=== PATIENT | male | born 1980 | race Caucasian/White ===

== ENCOUNTER 2019-08-25 18:28 | Inpatient (IN) | payer BC ==
[~2019-08-25] VITALS: Ht 180.3 cm; Wt 49.1 kg
--- NOTE | ~2019-08-25 | OP ---
PATIENT NAME: RONNIE LEMOS MEDICAL RECORD: [id number] :84 LOCATION:.[facility] D.2304 ADMISSION DATE:08/25/19 SURGEON: RAYMOND DU MD DATE OF OPERATION: 09/08/2019 PREOPERATIVE DIAGNOSES: 1. Need for IV access. 2. Hypercalcemia. 3. Bacteremia. 4. Anemia. 5. Hypotension. POSTOPERATIVE DIAGNOSES: 1. Need for IV access. 2. Hypercalcemia. 3. Bacteremia. 4. Anemia. 5. Hypotension. PROCEDURE: Right subclavian vein triple-lumen central venous line placement. SURGEON: Raymond Du MD REPORT OF PROCEDURE: The patient's right chest was prepped and draped in sterile fashion. A 5 cc of 1% lidocaine was infused into the subcutaneous tissues and a needle was used to cannulate the right internal jugular vein. Over this wire, a dilator was placed followed by the triple lumen catheter. The catheter aspirated nonpulsatile dark blood and flushed easily in all 3 ports. This was sutured into place with 3-0 silk ties and dressed appropriately. COMPLICATIONS: None. CONDITION: Stable. ANESTHESIA: Local. BLOOD LOSS: Minimal. Procedure done in the ICU at the bedside. TRANSINT:[id number] Voice Confirmation ID: [id number] DOCUMENT ID: [id number] RAYMOND DU MD CC: [id number] DICTATION DATE: 09/08/19 1542 SECTION LEADER SCREEN PRINTING: 09/08/19 1720 ADM IN [facility] [address] [place] [address]
[2019-08-25] MEDS ORDERED: MAG-OXIDE400 MG PO (18:34)
[2019-08-25] MEDS ORDERED: CARAFATE1 G PO (18:34)
[2019-08-25] MEDS ORDERED: MITIGARE PO (18:35)
[2019-08-25] MEDS ORDERED: PROTONIX40 MG PO (18:36)
[2019-08-25 19:03] LABS: HEMATOCRIT 40.2 % (42.0-54.0); HEMOGLOBIN 12.9 g/dL (13.5-17.5); LYMPHOCYTES 33.6 % (15-50); MCH 27.7 pg (26.0-34.0); MCHC 32.1 g/dL (31.0-37.0); MCV 86.3 fL (80.0-100.0); MEAN PLATELET VOLUME 8.4 fL (7.4-10.4); NEUTROPHILS 54.4 % (40-80); PLATELET COUNT 507 10x3/uL (130-400); RBC 4.66 10x6/uL (4.20-6.10); WBC 9.3 10x3/uL (4.8-10.8)
[2019-08-25 19:24] LABS: ALKALINE PHOSPHATASE 234 U/L (30-120); ALT (SGPT) 15 U/L (10-68); AMYLASE - SERUM 54 U/L (25-115); BILIRUBIN - TOTAL 0.61 mg/dL (0.2-1.3); CALC OSMOLALITY 259 mosm/kg (275-300); CARBON DIOXIDE 29.7 mmol/L (21.0-32.0); CHLORIDE - SERUM 91 mmol/L (98-107); GLUCOSE 118 mg/dL (74-106); LIPASE 62 U/L (73-393); PROTEIN - SERUM 8.9 g/dL (6.4-8.2); SODIUM 127 mmol/L (136-145); UREA NITROGEN 23 mg/dL (7-18); eGFR NON AFRICAN AMERICAN 40 mL/min (90-120)
[2019-08-25 19:26] LABS: TROPONIN-I < 0.017 ng/mL (0.000-0.060)
[2019-08-25 19:27] LABS: CALCIUM 14.7 mg/dL (8.5-10.1)
[2019-08-25 19:58] VITALS: BP 96/69
[2019-08-25 20:47] VITALS: BP 109/81
[2019-08-25 22:00] VITALS: BP 110/68
[2019-08-25 23:14] VITALS: BP 110/74
--- NOTE | 2019-08-26 00:29 | NUR ---
PT ARRIVED ON UNIT VIA STRETCHER ESCORTED BY ER NURSE AND FRIEND. POSITIONED IN BED FOR COMFORT. ORIENTED TO ROOM AND CALL LIGHT. CONTINUED IV FLUIDS AT 200 PER ORDER.
--- NOTE | 2019-08-26 00:46 | NUR ---
GAVE SCHEDULED PROTONIX IVP....ALSO GAVE MORPHINE 4 MG IVP AND ZOFRAN 4 MG IVP PER REQUEST FOR PAIN AND NAUSEA, PER PRN ORDER. WILL MONITOR FOR EFFECTIVENESS.
[2019-08-26 00:54] VITALS: BP 117/85; BMI 15.1
--- NOTE | 2019-08-26 01:03 | NUR ---
ADMISSION ASSESSMENT AND HISTORY COMPLETE.
[2019-08-26 01:48] LABS: BILIRUBIN NEGATIVE (NEGATIVE); GLUCOSE NEGATIVE (NEGATIVE); KETONE NEGATIVE (NEGATIVE); NITRITE NEGATIVE (NEGATIVE); UROBILINOGEN NORMAL (NORMAL)
[2019-08-26 04:00] VITALS: BP 103/63
[2019-08-26 05:41] LABS: LYMPHOCYTES 36.9 % (15-50); MCV 87.3 fL (80.0-100.0); MEAN PLATELET VOLUME 8.5 fL (7.4-10.4); NEUTROPHILS 46.3 % (40-80); RDW 14.9 % (11.5-14.5)
[2019-08-26 05:46] LABS: HEMATOCRIT 30.9 % (42.0-54.0); HEMOGLOBIN 9.9 g/dL (13.5-17.5); PLATELET COUNT 304 10x3/uL (130-400); RBC 3.54 10x6/uL (4.20-6.10); WBC 4.3 10x3/uL (4.8-10.8)
[2019-08-26 06:20] LABS: BILIRUBIN - TOTAL 0.5 mg/dL (0.2-1.3); C-REACTIVE PROTEIN 6.2 mg/dL (0.0-0.9); CREATININE - SERUM 1.8 mg/dL (0.6-1.3)
--- NOTE | 2019-08-26 07:05 | NUR ---
RECEIVED REPORT, ASSUMED CARE, A&O X3, DENIES NEEDS, CALL LIGHT IN REACH, BED LOWEST POSITION, BREATHING EVEN UNLABORED, BLE ELEVATED, WILL CONTINUE POC
[2019-08-26 07:06] LABS: ALBUMIN 2.9 g/dL (3.4-5.0); PROTEIN - SERUM 6.6 g/dL (6.4-8.2)
[2019-08-26 07:10] LABS: CALCIUM 12.5 mg/dL (8.5-10.1)
--- NOTE | 2019-08-26 07:35 | NUR ---
LYING IN BED,WITHOUT NEEDS.CALL LIGHT IN REACH
[2019-08-26 09:08] VITALS: BP 106/73
[2019-08-26 13:06] VITALS: BP 114/73
[2019-08-26 14:47] VITALS: Ht 180.3 cm; Wt 49.1 kg
[2019-08-26 18:04] VITALS: BP 112/78
--- NOTE | 2019-08-26 19:00 | NUR ---
BEDSIDE REPORT RECEIVED AND CARE OF PT ASSUMED. PT LYING IN LOW FARIAS'S POSITION VISITING WITH FAMILY MEMBER. IV TO LEFT FA PATENT WITH NS INFUSING AT 75 ML/HR. WILL MONITOR FOR NEEDS.
[2019-08-26 20:00] VITALS: BP 103/68
--- NOTE | 2019-08-26 20:55 | NUR ---
HS MEDICATIONS GIVEN. WILL CONTINUE TO MONITOR FOR NEEDS.
--- NOTE | 2019-08-26 23:00 | NUR ---
INCREASED IV FLUIDS TO 125 ML/HR PER NEW ORDER FROM DR PEREZ.
[2019-08-27 04:00] VITALS: BP 101/59
[2019-08-27 07:04] LABS: % SATURATION 13 % (15-55); IRON 18 ug/dl (35-150); TOTAL IRON BIND CAPACITY 132 ug/dl (260-445); UNSAT IRON BIND CAPACITY 114 ug/dl (150-375)
[2019-08-27 07:19] LABS: PRE-ALBUMIN 12.1 mg/dL (18.0-35.7); T4 THYROXIN - FREE 1.07 ng/dL (0.76-1.46); THYROID STIMULATING HORMONE 10.5 uIU/mL (0.36-3.74)
--- NOTE | 2019-08-27 07:48 | NUR ---
PT IS RESTING IN BED WITH EYES OPEN. RESPIRATIONS ARE EVEN AND UNLABORED. PT DENIES PRESENCE OF PAIN/N/V AT THIS TIME. PIV TO LEFT FA INFUSING PER ORDER WITHOUT DIFFICULTY. PT IS AAO X 4. BED IS IN THE LOWEST POSITION. CALL LIGHT AND BEDSIDE TABLE ARE WITHIN REACH. SIDE RAILSX 2. PT DENIES FURTHER NEEDS. WILL CONT TO MONITOR.
[2019-08-27 09:38] VITALS: BP 102/64
[2019-08-27 13:00] VITALS: BP 108/62
[2019-08-27 17:55] VITALS: BP 97/65
[2019-08-27 20:00] VITALS: BP 120/82
--- NOTE | 2019-08-27 20:00 | NUR ---
USHA RESTING IN BED, REQUESTING PAIN MEDICATION FOR KNEES, MORPHINE GIVEN ORDERED, SEE SHIFT ASSESSEMNT, CALL LIGHT IN REACH
[2019-08-28 04:00] VITALS: BP 115/66
[2019-08-28 05:54] LABS: ANION GAP 7.7 mmol/L (8-16); CALCIUM 11.3 mg/dL (8.5-10.1); CARBON DIOXIDE 28.1 mmol/L (21.0-32.0); CREATININE - SERUM 1.7 mg/dL (0.6-1.3); MAGNESIUM - SERUM 1.4 mg/dL (1.8-2.4); PHOSPHOROUS 3.1 mg/dL (2.5-4.9)
[2019-08-28 06:14] LABS: HEMATOCRIT 26.9 % (42.0-54.0); HEMOGLOBIN 8.6 g/dL (13.5-17.5); LYMPHOCYTES 27.1 % (15-50); MCH 28.1 pg (26.0-34.0); MCV 87.9 fL (80.0-100.0); MEAN PLATELET VOLUME 8.9 fL (7.4-10.4); NEUTROPHILS 57.1 % (40-80); PLATELET COUNT 259 10x3/uL (130-400); RBC 3.06 10x6/uL (4.20-6.10); RDW 14.7 % (11.5-14.5); WBC 4.4 10x3/uL (4.8-10.8)
[2019-08-28 06:53] LABS: POTASSIUM - SERUM 3.8 mmol/L (3.5-5.1)
[2019-08-28 08:30] VITALS: BP 115/79
[2019-08-28 09:12] LABS: HEP B CORE AB TOTAL Negative (Negative); HEPATITIS C ANTIBODY 0.2 S/CO RAT (0.0-0.9)
[2019-08-28 12:00] VITALS: BP 112/73
--- NOTE | 2019-08-28 13:53 | NUR ---
I have reviewed this patient and I concur with the Shift Assessment completed by the Licensed Practical Nurse today this shift.
[2019-08-28 16:40] VITALS: BP 110/77
[2019-08-28 17:09] LABS: THYROGLOBULIN ANTIBODY <1.0 IU/mL (0.0-0.9); THYROID PEROXIDASE ABS <9 IU/mL (0-34)
--- NOTE | 2019-08-28 19:45 | NUR ---
LYING IN BED TALKING TO VISITOR. RATES PAIN IN KNEES AND LEGS 7 ON PAIN SCALE. MEDICATED WITH MORPHINE PER REQUEST. PT IS ALERT AND ORIENTED X4. APPEARS EMACIATED AND WEAK. PROCAL @ 30 MLHR, ZOFRAN DRIP @ 4.7 ML/HR AND NS @ 50 MLHR INFUSING IN LT FOREARM WITHOUT DIFF. SR ELEVATED X2. CL IN REACH.
[2019-08-28 20:00] VITALS: BP 102/69
--- NOTE | 2019-08-28 22:30 | NUR ---
ORDER FOR PRN MORPHINE FELL OFF OF APR AFTER 3 DAYS. NOTIFIED SILVERIO OSHEA AND ORDER RENEWED AT THIS TIME.
[2019-08-29] VITALS: BP 100/74
--- NOTE | 2019-08-29 03:35 | NUR ---
HAS RESTED WELL SO FAR THIS SHIFT. LYING IN BED WITH EYES CLOSED. RESP SHALLOW NONLABORED. NO DISTRESS. SR ELEVATED X2. CL IN REACH.
[2019-08-29 04:00] VITALS: BP 103/73
[2019-08-29 06:16] LABS: ALBUMIN 2.5 g/dL (3.4-5.0); ANION GAP 6.3 mmol/L (8-16); BILIRUBIN - TOTAL 0.37 mg/dL (0.2-1.3); CALCIUM 11.1 mg/dL (8.5-10.1); CARBON DIOXIDE 30.7 mmol/L (21.0-32.0); CREATININE - SERUM 1.5 mg/dL (0.6-1.3); MAGNESIUM - SERUM 1.4 mg/dL (1.8-2.4); PHOSPHOROUS 3.1 mg/dL (2.5-4.9); PROTEIN - SERUM 6.1 g/dL (6.4-8.2)
[2019-08-29 06:43] LABS: HEMATOCRIT 27.5 % (42.0-54.0); HEMOGLOBIN 8.9 g/dL (13.5-17.5); LYMPHOCYTES 26.7 % (15-50); MCH 28.3 pg (26.0-34.0); MCHC 32.4 g/dL (31.0-37.0); MCV 87.3 fL (80.0-100.0); MEAN PLATELET VOLUME 8.6 fL (7.4-10.4); NEUTROPHILS 59.3 % (40-80); PLATELET COUNT 275 10x3/uL (130-400); RBC 3.15 10x6/uL (4.20-6.10); RDW 14.4 % (11.5-14.5); WBC 4.3 10x3/uL (4.8-10.8)
[2019-08-29 09:17] VITALS: BP 125/85
--- NOTE | 2019-08-29 09:48 | NUR ---
PT VENEER LATHE OPERATOR LIGHT, WANTS TO KNOW IF THERE ARE OTHER TESTS THAT WE CAN RUN TO SEE WHY HE KEEPS VOMITING, MAYBE A SCOPE OF SOME SORT. EXPLAINED TO PT THAT DOCTORS ARE RUNNING TESTS AND EXPLORING OPTIONS DAILY AND WE WILL MENTION TO DAYO CABRERA AND DR BENJAMIN WHEN THEY MAKE ROUNDS, DR WOOD WAS HERE EARLIER AND PT FORGOT TO MENTION CONCERNS. NO OTHER NEEDS AT THIS TIME CONTINUE WITH PLAN OF CARE
--- NOTE | 2019-08-29 12:41 | NUR ---
PATIENT IN BED. DENIES NEEDS OR PAIN. BED LOW POSITION, CALL LIGHT IN REACH, FAMILY IN ROOM. WILL CONTINUE TO MONITOR.
[2019-08-29 13:17] VITALS: BP 116/72
[2019-08-29 14:11] LABS: CEA 0.9 ng/mL (0.0-4.7)
--- NOTE | 2019-08-29 14:46 | NUR ---
PATIENT COVERSTITCH BINDER LIGHT. URINAL EMPTIED. PATIENT RESTING IN BED, SPEAKING WITH FAMILY. DENIES PAIN OR NEEDS. CALL LIGHT IN REACH, BED LOW POSITION. WILL CONTINUE TO MONITOR.
[2019-08-29 17:09] LABS: SPE - ALBUMIN 2.9 g/dL (2.9-4.4); SPE - ALPHA-1 GLOBULIN 0.3 g/dL (0.0-0.4); SPE - ALPHA-2 GLOBULIN 0.8 g/dL (0.4-1.0); SPE - BETA GLOBULIN 0.7 g/dL (0.7-1.3); SPE - GAMMA GLOBULIN 1.1 g/dL (0.4-1.8); SPE - M-SPIKE Not Observed g/dL (Not Observed); SPE - TOTAL PROTEIN 5.8 g/dL (6.0-8.5)
[2019-08-29 17:31] VITALS: BP 115/75
--- NOTE | 2019-08-29 19:30 | NUR ---
LYING IN BED TALKING TO VISITOR. DENIES PAIN. PT IS ALERT AND ORIENTED X4. RESP NONLABORED. NAUSEATED AT TIMES. ZOFRAN DRIP @ 4.7 ML/HR WITH PROCAL @ 30 ML/HR AND NS @ 50 ML/HR INFUSING IN LT FOREARM. SCDS OFF AT THIS TIME. PT IS EMACIATED. GEN WEAKNESS NOTED. DRSG NOTED TO LT KNEE. SR ELEVATED X2. CL IN REACH.
[2019-08-29 20:00] VITALS: BP 105/73
--- NOTE | 2019-08-30 03:00 | NUR ---
LYING IN BED WITH EYES CLOSED. RESP NONLABORED. HAS RESTED WELL TONIGHT. NO DISTRESS. CL IN REACH.
[2019-08-30 04:00] VITALS: BP 181/102
[2019-08-30 06:24] LABS: INR 1.11 (0.85-1.17); PROTIME 14.3 SECONDS (11.6-15.0)
[2019-08-30 06:25] LABS: APTT 53.1 SECONDS (22.8-39.4)
[2019-08-30 06:26] LABS: ANION GAP 9.5 mmol/L (8-16); CARBON DIOXIDE 28.1 mmol/L (21.0-32.0); CREATININE - SERUM 1.3 mg/dL (0.6-1.3); MAGNESIUM - SERUM 1.4 mg/dL (1.8-2.4); PHOSPHOROUS 2.5 mg/dL (2.5-4.9); POTASSIUM - SERUM 3.6 mmol/L (3.5-5.1)
[2019-08-30 06:50] LABS: HEMATOCRIT 30.9 % (42.0-54.0); LYMPHOCYTES 34.7 % (15-50); MCH 28.2 pg (26.0-34.0); MCHC 32.4 g/dL (31.0-37.0); MCV 87.3 fL (80.0-100.0); MEAN PLATELET VOLUME 8.5 fL (7.4-10.4); NEUTROPHILS 52.4 % (40-80); PLATELET COUNT 322 10x3/uL (130-400); RBC 3.54 10x6/uL (4.20-6.10); RDW 14.3 % (11.5-14.5); WBC 4.6 10x3/uL (4.8-10.8)
[2019-08-30 08:30] VITALS: BP 108/70
[2019-08-30 12:00] VITALS: BP 114/79
--- NOTE | 2019-08-30 12:52 | NUR ---
PATIENT LEFT UNIT VIA BED. TO GI FOR PROCEDURE.
--- NOTE | 2019-08-30 14:00 | NUR ---
PATIENT IN ROOM RESTING BACK ON UNIT FROM GI LAB. DENIES NEEDS. IV INFUSING PER MAR. BED LOW POSITION, CALL LIGHT IN REACH, FAMILY IN ROOM.
[2019-08-30 14:10] LABS: BETA-2 MICROGLOBULIN 3.6 mg/L (0.6-2.4)
[2019-08-30 17:19] VITALS: BP 109/75
[2019-08-30 20:00] VITALS: BP 115/80
--- NOTE | 2019-08-30 20:30 | NUR ---
PT VOMITED APPROX 60 CC'S TWICE. PT HAS ZOFRAN DRIP INFUSING. WILL CONITINUE TO MONITOR.
[2019-08-31] VITALS: BP 102/74
[2019-08-31 04:00] VITALS: BP 107/73
[2019-08-31 07:45] LABS: BASOPHILS 0.2 % (0-2); HEMATOCRIT 30.7 % (42.0-54.0); HEMOGLOBIN 9.9 g/dL (13.5-17.5); LYMPHOCYTES 28.6 % (15-50); MCH 27.8 pg (26.0-34.0); MCHC 32.2 g/dL (31.0-37.0); MCV 86.2 fL (80.0-100.0); MEAN PLATELET VOLUME 8.5 fL (7.4-10.4); MONOCYTES 7.8 % (2-11); NEUTROPHILS 57.4 % (40-80); PLATELET COUNT 270 10x3/uL (130-400); RBC 3.56 10x6/uL (4.20-6.10); RDW 14.8 % (11.5-14.5); WBC 5.1 10x3/uL (4.8-10.8)
[2019-08-31 08:00] VITALS: BP 101/80
[2019-08-31 08:08] LABS: CALC OSMOLALITY 265 mosm/kg (275-300); CALCIUM 10.6 mg/dL (8.5-10.1); CARBON DIOXIDE 26.9 mmol/L (21.0-32.0); CHLORIDE - SERUM 99 mmol/L (98-107); CREATININE - SERUM 1.1 mg/dL (0.6-1.3); GLUCOSE 71 mg/dL (74-106); MAGNESIUM - SERUM 1.4 mg/dL (1.8-2.4); POTASSIUM - SERUM 3.8 mmol/L (3.5-5.1); SODIUM 134 mmol/L (136-145); UREA NITROGEN 13 mg/dL (7-18); eGFR NON AFRICAN AMERICAN 80 mL/min (90-120)
[2019-08-31 08:10] LABS: PHOSPHOROUS 3.2 mg/dL (2.5-4.9)
--- NOTE | 2019-08-31 09:00 | NUR ---
ASSESSMENT PER FLOW SHEET. PATIENT IS WITHOUT DISTRESS. HE DENIES NEEDS AT PRESENT.CALL LIGHT IN REACH
[2019-08-31 12:00] VITALS: BP 105/80
[2019-08-31 16:00] VITALS: BP 113/76
--- NOTE | 2019-08-31 18:29 | NUR ---
FAMILY AT BEDSIDE AND VISITING WITH PATIENT. HE HAD 2 EPISODES OF NAUSEA TODAY WITH SMALL AMOUNTS OF EMESIS. HE COMPLAINED A SOME PAIN EARLY IN DAY. EGGCRATE PLACED ON BED TODAY TO DECREASE PAIN IN LEGS AND BACK. CONT PLAN OF CARE
[2019-08-31 20:00] VITALS: BP 118/81
[2019-09-01 01:50] VITALS: BP 120/78
[2019-09-01 04:00] VITALS: BP 118/78
[2019-09-01 06:13] LABS: BASOPHILS 0.4 % (0-2); EOSINOPHILS 6.8 % (0-7); HEMOGLOBIN 10.2 g/dL (13.5-17.5); MCH 27.9 pg (26.0-34.0); MCHC 32.9 g/dL (31.0-37.0); MCV 84.7 fL (80.0-100.0); MEAN PLATELET VOLUME 8.4 fL (7.4-10.4); MONOCYTES 6.2 % (2-11); NEUTROPHILS 52.6 % (40-80); PLATELET COUNT 305 10x3/uL (130-400); RBC 3.66 10x6/uL (4.20-6.10); RDW 14.8 % (11.5-14.5); WBC 4.9 10x3/uL (4.8-10.8)
[2019-09-01 06:45] LABS: CALC OSMOLALITY 264 mosm/kg (275-300); CALCIUM 11.5 mg/dL (8.5-10.1); CARBON DIOXIDE 26.4 mmol/L (21.0-32.0); CHLORIDE - SERUM 97 mmol/L (98-107); CREATININE - SERUM 1.1 mg/dL (0.6-1.3); GLUCOSE 74 mg/dL (74-106); MAGNESIUM - SERUM 1.5 mg/dL (1.8-2.4); PHOSPHOROUS 3.6 mg/dL (2.5-4.9); POTASSIUM - SERUM 3.8 mmol/L (3.5-5.1); SODIUM 132 mmol/L (136-145); UREA NITROGEN 14 mg/dL (7-18); eGFR NON AFRICAN AMERICAN 80 mL/min (90-120)
[2019-09-01 09:04] VITALS: BP 111/81
--- NOTE | 2019-09-01 12:19 | NUR ---
ASSESSMENT HAS BEEN COMPLETED PER FLOW SHEET. PATIENT HAS BEEN WITHOUT DISTRESS. BALBINA ALLEN APN HAS SPOKE IN DEPTH WITH FAMILY RE.. PLAN OF CARE AND LABS. HE ALSO TOLD MOTHER DR WOOD WOULD BE ROUNDING.CALL LIGHT IN REACH.
--- NOTE | 2019-09-01 12:21 | NUR ---
UP IN WHEELCHAIR PER LABORATORY ASST LIZZY. PATIENT IS TOLERATING AT PRESENT
--- NOTE | 2019-09-01 12:42 | NUR ---
DR WOOD TO SEE PATIENT. HE IS EATING LUNCH WITHOUT NAUSEA AT PRESENT.FAMILY AT BEDSIDE.
[2019-09-01 13:00] VITALS: BP 120/85
[2019-09-01 13:01] LABS: APTT 54.2 SECONDS (22.8-39.4); D-DIMER-QUANTITATIVE 1.91 ug/mLFEU (0.20-0.54)
[2019-09-01 13:02] LABS: INR 1.09 (0.85-1.17)
--- NOTE | 2019-09-01 15:34 | NUR ---
CALL TO WIFES PHONE [phone], NO ANSWER.
[2019-09-01 16:00] VITALS: BP 125/84
--- NOTE | 2019-09-01 16:07 | NUR ---
HERE IN ER. PATIENT LEFT UNIT VIA WHEELCHAIR FOR TRANSPORT HOME.
--- NOTE | 2019-09-01 16:10 | NUR ---
HAS REMAINED WITHOUT NAUSEA TODAY. BITES OF LUNCH, APPLE JUICE AND POPSICLES.
[2019-09-01 20:00] VITALS: BP 117/72
--- NOTE | 2019-09-01 22:45 | NUR ---
PT VOMITED 300 CC'S. PT STATES HE THINKS IT THE SODIUM TAB THAT MAKES HIM VOMIT.
[2019-09-02] VITALS: BP 110/74
--- NOTE | 2019-09-02 03:40 | NUR ---
PT C/O LEFT SIDE SHARP PAIN BENEATH RIBS AROUND TO BACK 08/22. STATES PAIN COMES WHEN HE TAKES A BREATH IN. PT APPEARS TO BE HAVING ACID REFLUX, ALSO. PT ATE LARGE DINNER THIS AFTERNOON. BREATH SOUNDS ARE CLEAR BILAT. OXYGEN SAT IS AND HAS BEEN 98-99% ALL NIGHT. RAISED HOB OF BED. NO OTHER NEEDS. WILL CONTINUE TO MONITOR. BED LOW, CALL LIGHT IN REACH.
[2019-09-02 04:00] VITALS: BP 124/71
[2019-09-02 05:21] LABS: BASOPHILS 0.2 % (0-2); EOSINOPHILS 5.8 % (0-7); HEMATOCRIT 30.2 % (42.0-54.0); HEMOGLOBIN 9.8 g/dL (13.5-17.5); IMMATURE GRANULOCYTES 0.2 % (0-5); LYMPHOCYTES 26.2 % (15-50); MCH 27.5 pg (26.0-34.0); MCHC 32.5 g/dL (31.0-37.0); MCV 84.8 fL (80.0-100.0); MEAN PLATELET VOLUME 8.4 fL (7.4-10.4); MONOCYTES 8.7 % (2-11); NEUTROPHILS 58.9 % (40-80); PLATELET COUNT 255 10x3/uL (130-400); RBC 3.56 10x6/uL (4.20-6.10); RDW 14.9 % (11.5-14.5); WBC 4.2 10x3/uL (4.8-10.8)
[2019-09-02 05:51] LABS: ANION GAP 10.5 mmol/L (8-16); CALCIUM 10.8 mg/dL (8.5-10.1); CARBON DIOXIDE 28.3 mmol/L (21.0-32.0); CREATININE - SERUM 1.2 mg/dL (0.6-1.3); MAGNESIUM - SERUM 1.5 mg/dL (1.8-2.4); PHOSPHOROUS 3.6 mg/dL (2.5-4.9); POTASSIUM - SERUM 3.8 mmol/L (3.5-5.1)
[2019-09-02 08:00] VITALS: BP 103/72
[2019-09-02 12:25] VITALS: BP 107/80
[2019-09-02 16:56] VITALS: BP 113/81
--- NOTE | 2019-09-02 19:50 | NUR ---
LYING IN BED TALKING TO VISITOR. ALERT AND ORIENTED X4. RESP EVEN AND NONLABORED. LT KNEE DRSG INTACT. C/O NAUSEA. REPORTS NO BM IN 5 DAYS. RATES PAIN IN LEGS 8. MEDICATED WITH MORPHINE. PROCAL @ 30 MLHR INFUSING IN LT AC, ZOFRAN DRIP INFUSING @ 4.7 ML/HR AND NS @ 75 MLHR INFUSING IN LT AC. VERY WEAK. SCDS OFF AT THIS TIME. SR ELEVATED X2. CL IN REACH.
[2019-09-02 20:00] VITALS: BP 103/73
[2019-09-03 04:00] VITALS: BP 110/70
--- NOTE | 2019-09-03 04:03 | NUR ---
HAS RESTED WELL TONIGHT. NO DISTRESS. CL IN REACH. LYING IN BED WITH EYES CLOSED. RESP NONLABORED.
[2019-09-03 05:30] LABS: BASOPHILS 0.5 % (0-2); EOSINOPHILS 7.7 % (0-7); HEMATOCRIT 29.4 % (42.0-54.0); HEMOGLOBIN 9.3 g/dL (13.5-17.5); LYMPHOCYTES 27.6 % (15-50); MCH 27.4 pg (26.0-34.0); MCHC 31.6 g/dL (31.0-37.0); MCV 86.5 fL (80.0-100.0); MEAN PLATELET VOLUME 8.3 fL (7.4-10.4); MONOCYTES 10.2 % (2-11); PLATELET COUNT 253 10x3/uL (130-400); WBC 3.9 10x3/uL (4.8-10.8)
[2019-09-03 05:41] LABS: CALC OSMOLALITY 267 mosm/kg (275-300); CALCIUM 10.9 mg/dL (8.5-10.1); CARBON DIOXIDE 29.8 mmol/L (21.0-32.0); CHLORIDE - SERUM 101 mmol/L (98-107); CREATININE - SERUM 1.1 mg/dL (0.6-1.3); GLUCOSE 86 mg/dL (74-106); MAGNESIUM - SERUM 1.5 mg/dL (1.8-2.4); PHOSPHOROUS 3.8 mg/dL (2.5-4.9); POTASSIUM - SERUM 4.3 mmol/L (3.5-5.1); SODIUM 134 mmol/L (136-145); UREA NITROGEN 14 mg/dL (7-18); eGFR NON AFRICAN AMERICAN 80 mL/min (90-120)
[2019-09-03 08:00] VITALS: BP 127/87
--- NOTE | 2019-09-03 08:00 | NUR ---
MOTHER JUNIOR IN ROOM. SM BOWEL SERIES STARTED. CL IN REACH. WCTM
[2019-09-03 11:59] VITALS: BP 116/77
--- NOTE | 2019-09-03 13:08 | NUR ---
Nutrition follow-up: Pt receiving a regular diet PO intake has been extremely poor due to continued nausea, vomiting labs reviewed WT: 110# Normal SBFT ProcalAmine PPN started @ 30 ml/hr; only providing 176 kcal, 22 gm protein Recommend increasing PPN to 75 ml/hr to provide: 441 kcal, 54 gm protein If pt with continued nausea, vomiting recommend starting TPN and/or trickle jejunostomy feeds. RDN following.
--- NOTE | 2019-09-03 14:15 | NUR ---
IV LINES CHANGED OUT
--- NOTE | 2019-09-03 16:30 | NUR ---
PATIENT STATES HE FEELS FUNNY. I EXPLAINED TO HIM THE NEW MEDICATION MARINOL TO HIM. FRIEND PHILLIP IN ROOM. PT STATED THAT HE DOESN'T LIKE HOW THE MARINOL MAKES HIM FEEL AND THAT HE DOESN'T WANT THAT 4 TIMES A DAY. CL IN REACH. WCTM
[2019-09-03 16:58] VITALS: BP 108/73
--- NOTE | 2019-09-03 21:05 | NUR ---
LYING IN BED. ALERT AND ORIENTED X4. LETHARGIC. S.O. STATES THAT THE MARINOL "THREW HIM FOR A LOOP AND MADE HIM FEEL FUNNY AND HE DOESNT WANT IT." GEN WEAKNESS NOTED. DRSG NOTED TO LT KNEE. PT IS EMACIATED. PROCAL @ 30 MLHRINFUSING, NS @ 75 MLHR INFUSING AND ZOFRAN @ 4.7 MLHR INFUSING IN LT AC. RATES PAIN IN LEGS 5 BUT DENIES NEED FOR PAIN MED. CL IN REACH. RESP EVEN AND NONLABORED. USES URINAL.
[2019-09-03 21:16] VITALS: BP 110/68
[2019-09-03 22:07] LABS: LEAD 1 ug/dL (0-4)
[2019-09-04] VITALS: BP 199/64
--- NOTE | 2019-09-04 02:07 | NUR ---
HAS RESTED WELL TONIGHT SO FAR. DENIES NEEDS. CL IN REACH.
[2019-09-04 04:00] VITALS: BP 110/77
[2019-09-04 05:35] LABS: BASOPHILS 0 % (0-2); HEMATOCRIT 30.5 % (42.0-54.0); HEMOGLOBIN 9.6 g/dL (13.5-17.5); LYMPHOCYTES 22.9 % (15-50); MCH 27.3 pg (26.0-34.0); MCHC 31.5 g/dL (31.0-37.0); MCV 86.6 fL (80.0-100.0); MEAN PLATELET VOLUME 8.7 fL (7.4-10.4); MONOCYTES 3.3 % (2-11); NEUTROPHILS 67.8 % (40-80); PLATELET COUNT 300 10x3/uL (130-400); RBC 3.52 10x6/uL (4.20-6.10); RDW 15.2 % (11.5-14.5); WBC 4.8 10x3/uL (4.8-10.8)
[2019-09-04 05:57] LABS: ALBUMIN 2.9 g/dL (3.4-5.0); ALKALINE PHOSPHATASE 206 U/L (30-120); ALT (SGPT) 17 U/L (10-68); BILIRUBIN - TOTAL 0.27 mg/dL (0.2-1.3); CALC OSMOLALITY 268 mosm/kg (275-300); CALCIUM 10.8 mg/dL (8.5-10.1); CARBON DIOXIDE 30.5 mmol/L (21.0-32.0); CHLORIDE - SERUM 99 mmol/L (98-107); CREATININE - SERUM 1.1 mg/dL (0.6-1.3); GLUCOSE 89 mg/dL (74-106); POTASSIUM - SERUM 4.8 mmol/L (3.5-5.1); PROTEIN - SERUM 6.8 g/dL (6.4-8.2); SODIUM 135 mmol/L (136-145); UREA NITROGEN 13 mg/dL (7-18); eGFR NON AFRICAN AMERICAN 80 mL/min (90-120)
[2019-09-04 08:00] VITALS: BP 105/66
--- NOTE | 2019-09-04 08:52 | NUR ---
PT ALERT AND ORIENTED X4 UPON ENTERING, UP RIGHT IN BED. ADMINISTERED MEDICATION, NO DIFFICULTIES. DENIES ANY NEEDS. BED IN LOWEST POSITION, BED RAILS X2, CALL LIGHT WITHIN REACH. WILL CONTINUE TO MONITOR.
--- NOTE | 2019-09-04 09:21 | MORECARE ---
CASE MANAGEMENT DISCHARGE SUMMARY PATIENT: RONNIE LEMOS UNIT: [id number] ADM DATE: 08/25/19 AGE: 39 : [birth year] SEX: M ROOM/BED: D.2231 AUTHOR: FLORENCIO GARRETT PHYSICIAN: REFERRING PHYSICIAN: KAILEE GÓMEZ MD DATE OF SERVICE: 09/04/19 Discharge Plan Patient Name: RONNIE LEMOS Facility: [facility]:[place] : 1980 Planned Disposition: Home Hlth Svc w Plan Readm Anticipated Discharge Date: Discharge Date: Expected LOS: Initial Reviewer: [id number] Initial Review Date: 09/04/2019 Generated: 09/04/19 10:21 am Comments DCP- Discharge Planning Updated by [email or web address]: Layne Henry on 09/04/19 8:[address] Patient Name: RONNIE LEMOS Admission Status: ER Accout number: [id number] Admission Date: 08-25-2019 : 1980 Admission Diagnosis:HYPERCALCEMIA Attending: KAILEE TIM Current LOS: 10 Anticipated DC Date: Planned Disposition: Home Hlth Svc w Plan Readm Primary Insurance: [employer] OUT OF STATE Discharge Planning Comments: CM met with patient at bedside after explaining CM role and obtaining verbal consent. CM discussed availability / needs of home health, REHAB and medical equipment. PATIENT STATES PLANS TO RETURN TO HIS MOMS HOUSE WHERE HE IS STAYING AND RESUME [facility]. TD SIGNED. STATES HAS ALL THE EQUIPMENT HE NEEDS. CM WILL FOLLOW AND ASSIST WITH DC PLANNING NEEDED. Primary Grade Teacher: Layne Henry DCPIA - Discharge Planning Initial Assessment Updated by [email or web address]: Layne Henry on 09/04/19 9:19 am * Is the patient Alert and Oriented? Yes * PCP SHAVON * Pharmacy [facility] * Preadmission Environment Home with Family * Other Equipment WHEEL CHAIR, HOSPITAL BED, STATES HAS ALL EQUIPMENT * Community resources currently utilized Home Health * Please name any agencies selected above. [facility] * Additional services required to return to the preadmission environment? No * Can the patient safely return to the preadmission environment? Yes * Has this patient been hospitalized within the prior 30 days at any hospital? No Coverage Notice Reviewer: [id number] - Layne Henry Notice Issued Date-Time: 09/04/2019 9:20 Notice Type: Patient Choice Letter Notice Delivered To: Patient Relationship to Patient: Quality Assurance Lab Technician Name: Delivery Method: HAND - Hand Delivered Renetta Days: Prior Verbal Notification: Recipient Understood Notice: Yes Recipient Signature: Yes Med Rec Note Co-signed by Attending: Coverage Notice Comment: LORY BELL Patient Name: RONNIE LEMOS Page [id number] at 0921 All edits/amendments must be made on the electronic document DICTATION DATE: 09/04/19920 CONTRACTS ATTORNEY: GERA 09/04/19920 RPT#: [id number] DC DATE: STATUS: ADM IN [facility] [address] [place] [address] END OF REPORT
[2019-09-04 11:51] VITALS: BP 113/74
--- NOTE | 2019-09-04 12:22 | NUR ---
HUNG NEW BAG OF ZOFRAN, ADMINISTERED PO MEDICATION. RESTING COMFORTABLY. PT IS NOW ON FRIST STEP OVERLAY MATTRESS. ASSESSMENT PERFORMED AT THIS TIME. RESTING COMFORTABLY. DENIES ANY NEEDS. WILL CONTINUE TO MONITOR.
--- NOTE | 2019-09-04 14:38 | NUR ---
HUNG IV MEDICATIONS. PRN MORPHINE FOR GENERALIZED PAIN. DENIES ANY OTHER NEEDS. RESTING IN BED, FAMILY AT BEDSIDE. WILL CONTINUE TO MONITOR.
[2019-09-04 16:11] VITALS: BP 121/83
--- NOTE | 2019-09-04 16:36 | NUR ---
NO DIFFICULTIES WITH MEDICATION. FAMILY AT BEDSIDE. DENIES ANY NEEDS. UPRIGTH IN BED. WILL CONTINUE TO MONITOR.
--- NOTE | 2019-09-04 18:45 | NUR ---
I have reviewed this patient and I concur with the Shift Assessment completed by the Licensed Practical Nurse today this shift.
--- NOTE | 2019-09-04 18:52 | NUR ---
PT REPORTS HE VOMITTED ABOUT 300 CC. PROVIDED WITH EMESIS BAG. STATES PT HAS BEEN VOMITTING FOR 3 MONTHS. DENIES ANY NEEDS OR HELP AT THIS TIME. WILL CONTINUE TO MONITOR.
--- NOTE | 2019-09-04 19:25 | NUR ---
LYING IN BED TALKING TO S.O. REPORTS PAIN IN LEGS 7. MEDICATED WITH MORPHINE AND COMPAZINE FOR PAIN AND NAUSEA. JUST VOMITED 200 ML PRIOR TO SHIFT CHANGE. PT STILL REFUSING MARINOL BECAUSE IT MAKES HIM "FEEL FUNNY AND OUT OF IT." DSRG NOTED TO LT KNEE. PT EMACIATED AND WEAK. PROCAL, NS AND ZOFRAN DRIP INFUSING IN LT AC. SR ELEVATED X2. CL IN REACH.
[2019-09-04 20:00] VITALS: BP 114/76
--- NOTE | 2019-09-04 22:12 | NUR ---
MORPHINE ORDER FELL OFF OF APR AFTER 3 DAYS. NOTIFIED DAYO DONOVAN OF THIS AND NEW ORDER NOTED TO CONTINUE MORPHINE.
[2019-09-05] VITALS: BP 104/62
[2019-09-05 04:00] VITALS: BP 114/85
--- NOTE | 2019-09-05 04:15 | NUR ---
HAS RESTED WELL THIS SHIFT. NO DISTRESS. CL IN REACH. LYING IN BED WITH EYES CLOSED. RESP NONLABORED.
[2019-09-05 06:58] LABS: MAGNESIUM - SERUM 1.9 mg/dL (1.8-2.4)
[2019-09-05 07:16] LABS: PH - STOOL 7.5 (7.0-7.5)
[2019-09-05 08:00] VITALS: BP 112/74
[2019-09-05 10:53] LABS: BASOPHILS 0.3 % (0-2); EOSINOPHILS 0.9 % (0-7); HEMATOCRIT 33.2 % (42.0-54.0); HEMOGLOBIN 10.4 g/dL (13.5-17.5); LYMPHOCYTES 16.4 % (15-50); MCH 27.2 pg (26.0-34.0); MCHC 31.3 g/dL (31.0-37.0); MCV 86.9 fL (80.0-100.0); MEAN PLATELET VOLUME 8.7 fL (7.4-10.4); MONOCYTES 3.5 % (2-11); NEUTROPHILS 78.9 % (40-80); RBC 3.82 10x6/uL (4.20-6.10); RDW 14.9 % (11.5-14.5)
[2019-09-05 10:54] LABS: PLATELET COUNT 385 10x3/uL (130-400); WBC 3.4 10x3/uL (4.8-10.8)
[2019-09-05 11:03] LABS: ALBUMIN 3.4 g/dL (3.4-5.0); BILIRUBIN - TOTAL 0.44 mg/dL (0.2-1.3); CALCIUM 10.7 mg/dL (8.5-10.1); CARBON DIOXIDE 25.2 mmol/L (21.0-32.0); CREATININE - SERUM 1.2 mg/dL (0.6-1.3); MAGNESIUM - SERUM 1.9 mg/dL (1.8-2.4); PROTEIN - SERUM 7.8 g/dL (6.4-8.2)
[2019-09-05 11:04] LABS: ANION GAP 10.9 mmol/L (8-16)
[2019-09-05 11:09] LABS: POTASSIUM - SERUM 6.1 mmol/L (3.5-5.1)
[2019-09-05 12:11] VITALS: BP 119/77
[2019-09-05 16:08] VITALS: BP 119/90
[2019-09-05 20:00] VITALS: BP 114/73
[2019-09-06 05:39] LABS: BASOPHILS 0.3 % (0-2); HEMOGLOBIN 10.1 g/dL (13.5-17.5); LYMPHOCYTES 11.4 % (15-50); MCH 27.7 pg (26.0-34.0); MCHC 31.6 g/dL (31.0-37.0); MCV 87.7 fL (80.0-100.0); MEAN PLATELET VOLUME 8.3 fL (7.4-10.4); MONOCYTES 10.7 % (2-11); NEUTROPHILS 75.6 % (40-80); RBC 3.65 10x6/uL (4.20-6.10); RDW 15.2 % (11.5-14.5); WBC 3.9 10x3/uL (4.8-10.8)
[2019-09-06 05:41] LABS: PLATELET COUNT 232 10x3/uL (130-400)
--- NOTE | 2019-09-06 05:54 | NUR ---
UNABLE TO WEIGH PT AT THIS TIME. BED NEEDS TO BE ZERO'D OUT WHEN PT GETS PT UP TO CHAIR TODAY. WEIGHT FOR PT WAS 120.1 WITH 1ST STEP OVERLAY MATTRESS AND MACHINE ON BED. BED NEEDS TO BE ZERO'D OUT AGAIN WHEN PT IS UP TO CHAIR TODAY TO GET ACCURATE WEIGHT.
[2019-09-06 05:58] LABS: ALBUMIN 3.2 g/dL (3.4-5.0); BILIRUBIN - TOTAL 0.25 mg/dL (0.2-1.3); CARBON DIOXIDE 27.5 mmol/L (21.0-32.0); CREATININE - SERUM 1.2 mg/dL (0.6-1.3); MAGNESIUM - SERUM 1.7 mg/dL (1.8-2.4); PHOSPHOROUS 2.6 mg/dL (2.5-4.9); PROTEIN - SERUM 7.2 g/dL (6.4-8.2)
[2019-09-06 06:01] LABS: ANION GAP 10.9 mmol/L (8-16); POTASSIUM - SERUM 4.4 mmol/L (3.5-5.1)
[2019-09-06 08:13] VITALS: BP 116/73
--- NOTE | 2019-09-06 11:49 | NUR ---
PHYSICAL THERAPY TO ROOM.PATIENT IS WITHOUT NEEDS.
[2019-09-06 11:56] VITALS: BP 109/76
--- NOTE | 2019-09-06 15:09 | NUR ---
Nutrition Follow-up: NUTRITION CONSULT Plan is for bone marrow biopsy Monday. Patient refusing Marinol. Diet: Regular PO intake: 0%; spoke with patient at bedside. He had eaten pudding from his lunch tray and said that he drank some of the fluids. He denies needs at this time. PPN: ProCalamine @ 30mL/hr = 176cal and 22gms protein Last BM: 09/06/19. WT: 108# (09/04/19)- noted nursing attempted new wt today Meds noted: prednisone, marinol, miralax, reglan. Labs reviewed. Recommend increasing ProCalamine to 75mL/hr to provide at least: 441cal and 51gms protein. If patient continues with +N/V recommend starting TPN and/or trickle jtube feeds. RD following.
[2019-09-06 15:22] VITALS: BP 108/75
[2019-09-06 20:00] VITALS: BP 120/75
[2019-09-07] VITALS (15 sets, daily range): BP systolic 68–130; BP diastolic 49–84
--- NOTE | 2019-09-07 03:53 | NUR ---
I have reviewed this patient and I concur with the Shift Assessment completed by the Licensed Practical Nurse today this shift.
--- NOTE | 2019-09-07 05:30 | NUR ---
PATIENT WITH TEMP 102.7,HR 154 B/P 134/84. CALL PLACED TO LUIS MIGUEL OSHEA. ORDERS RECEIVED.PATIENT NOT RESPONDING VERBALLY AT THIS TIME. WILL FOLLOW WITH EYES. LAB AN X RAY NOTIFIED OF ORDERS. FAMILY AT BEDSIDE. CL IN REACH.
[2019-09-07 06:17] LABS: BASOPHILS 0.1 % (0-2); EOSINOPHILS 0.1 % (0-7); HEMATOCRIT 35.6 % (42.0-54.0); HEMOGLOBIN 11.4 g/dL (13.5-17.5); IMMATURE GRANULOCYTES 0.2 % (0-5); LYMPHOCYTES 11.1 % (15-50); MCH 27.3 pg (26.0-34.0); MEAN PLATELET VOLUME 8.8 fL (7.4-10.4); MONOCYTES 5.2 % (2-11); NEUTROPHILS 83.3 % (40-80); PLATELET COUNT 256 10x3/uL (130-400); RBC 4.18 10x6/uL (4.20-6.10); RDW 15.5 % (11.5-14.5)
[2019-09-07 06:24] LABS: MCV 85.2 fL (80.0-100.0); WBC 9.8 10x3/uL (4.8-10.8)
--- NOTE | 2019-09-07 06:40 | NUR ---
MOTHER HERE. VERY DISTRAUGHT REQUESTING SON TO BE TRANSFERRED TO [facility]. DEMANDING TO MEÑO TO DOCTOR OR SOMEONE OVER DOCTORS. ATTEMPTED TO EXPLAIN TO MOTHER DOCTORS WOULD BE MAKING ROUNDS. STATES 'IF SOMETHING HAPPENS TO HIM I WILL CASEY THIS PLACE" I WANT HIM TRANSFERRED TODAY". SERGIO (VISITOR SERVICES SPECIALIST) NOTIFIED OF SITUATION AND MOTHERS REQUEST TO TALK TO SOMEONE.STATES SHE WILL COME UP TO TALK WITH MOTHER.
[2019-09-07 06:44] LABS: ALBUMIN 3.5 g/dL (3.4-5.0); BILIRUBIN - TOTAL 0.67 mg/dL (0.2-1.3); CALCIUM 10.1 mg/dL (8.5-10.1); CARBON DIOXIDE 24.1 mmol/L (21.0-32.0); CREATININE - SERUM 1.3 mg/dL (0.6-1.3); MAGNESIUM - SERUM 1.7 mg/dL (1.8-2.4); PHOSPHOROUS 2.3 mg/dL (2.5-4.9); POTASSIUM - SERUM 4.3 mmol/L (3.5-5.1); PROTEIN - SERUM 8.1 g/dL (6.4-8.2)
[2019-09-07 06:46] LABS: ANION GAP 11.2 mmol/L (8-16)
--- NOTE | 2019-09-07 07:15 | NUR ---
PT IS NOT ALERT, HE IS ONLY REPSONDING TO HIS MOM, OPENS EYES WHEN YOU SPEAK TO HIM BUT DOESN'T ALWAYS ANSWER, LUNGS SOUND LIKE A RUB IN BILATERAL LOWER LOBES, HYPO ACTIVE BOWEL SOUNDS X4, EXTREMETIES ARE STIFF THIS AM, COLLECTING 24 HR URINE, IV TO LAC PATENT, PT IS [address] ST ON TELEMETRY, CALL LIGHT IN REACH, MOM AT BEDSIDE, BREATHING SHALLOW
--- NOTE | 2019-09-07 07:20 | NUR ---
PT MOTHER STATES SHE IS UNHAPPY WITH CARE AND SON IS DETERIORATING AND SHE NEEDS HIM TRANSFERED, GENETICS TEACHER NURSE HAS ALREADY CONTACTED PHYSICIAN, GENERAL LOT ATTENDANT IS ON HER WAY TO SPEAK TO FAMILY
[2019-09-07 07:21] LABS: CREATINE KINASE 27 UL (21-232)
[2019-09-07 07:27] LABS: TROPONIN-I < 0.017 ng/mL (0.000-0.060)
--- NOTE | 2019-09-07 09:05 | NUR ---
TEMP AXILLARY IS 102.7, HR 158 ON TELEMTRY, PAGED ARETHA AWAITING CALL BACK
[2019-09-07 09:59] LABS: BILIRUBIN NEGATIVE (NEGATIVE); GLUCOSE NEGATIVE (NEGATIVE); KETONE NEGATIVE (NEGATIVE); NITRITE NEGATIVE (NEGATIVE); UROBILINOGEN NORMAL (NORMAL)
--- NOTE | 2019-09-07 10:53 | NUR ---
SPOKE TO DR RODRIGUEZ AND ADVISED HIM PT IS BEING TRANSFERRED TO ICU. PER DR RODRIGUEZ PT NEEDS CENTRAL LINE, RELAYED MESSAGE TO ICU NURSE YESENIA ESQUIVEL. DR COLON SPEAKING TO PT MOTHER AT THIS TIME
--- NOTE | 2019-09-07 10:58 | NUR ---
REC'D PT IN ICU. DR COLON AT BS.
--- NOTE | 2019-09-07 11:23 | MORECARE ---
CASE MANAGEMENT DISCHARGE SUMMARY PATIENT: RONNIE LEMOS UNIT: [id number] ADM DATE: 08/25/19 AGE: 39 : [birth year] SEX: M ROOM/BED: D.2304 AUTHOR: TAMIDOC PHYSICIAN: REFERRING PHYSICIAN: KAILEE GÓMEZ MD DATE OF SERVICE: 09/07/19 Discharge Plan Patient Name: RONNIE LEMOS Facility: [facility]:[place] : 1980 Planned Disposition: Home Hlth Svc w Plan Readm Anticipated Discharge Date: Discharge Date: Expected LOS: Initial Reviewer: [email or web address] Initial Review Date: 09/04/2019 Generated: 09/07/19 12:22 pm DCP- Discharge Planning Updated by [email or web address]: Layne Henry on 09/04/19 8:[address] Patient Name: RONNIE LEMOS Admission Status: ER Accout number: [id number] Admission Date: 08-25-2019 : 1980 Admission Diagnosis:HYPERCALCEMIA Attending: KAILEE TIM Current LOS: 10 Anticipated DC Date: Planned Disposition: Home Hlth Svc w Plan Readm Primary Insurance: [employer] OUT OF STATE Discharge Planning Comments: CM met with patient at bedside after explaining CM role and obtaining verbal consent. CM discussed availability / needs of home health, REHAB and medical equipment. PATIENT STATES PLANS TO RETURN TO HIS MOMS HOUSE WHERE HE IS STAYING AND RESUME [facility]. TD SIGNED. STATES HAS ALL THE EQUIPMENT HE NEEDS. CM WILL FOLLOW AND ASSIST WITH DC PLANNING NEEDED. Fast Food Services Manager: Layne Henry DCPIA - Discharge Planning Initial Assessment Updated by [id number]: Layne Henry on 09/04/19 9:19 am * Is the patient Alert and Oriented? Yes * PCP SHAVON * Pharmacy [facility] * Preadmission Environment Home with Family * Other Equipment WHEEL CHAIR, HOSPITAL BED, [facility] HAS ALL EQUIPMENT * Community resources currently utilized Home Health * Please name any agencies selected above. [facility] * Additional services required to return to the preadmission environment? No * Can the patient safely return to the preadmission environment? Yes * Has this patient been hospitalized within the prior 30 days at any hospital? No External Providers External Provider: OTHER-OTHER Next Contact Date: Service Request Date: Service Type: Resolution: Reviewer: Comments: Coverage Notice Reviewer: [id number] - Layne Henry Notice Issued Date-Time: 09/04/2019 9:20 Notice Type: Patient Choice Letter Notice Delivered To: Patient Relationship to Patient: Blow Moulding Machine Operator Name: Delivery Method: HAND - Hand Delivered Renetta Days: Prior Verbal Notification: Recipient Understood Notice: Yes Recipient Signature: Yes Med Rec Note Co-signed by Attending: Coverage Notice Comment: LORY BLAIR [facility] Last DP export: 09/04/19 8:21 a Patient Name: RONNIE LEMOS Page [phone] at 1123 All edits/amendments must be made on the electronic document DICTATION DATE: 09/07/191122 AUTOMOTIVE PAINTER: GERA 09/07/19 1123 RPT#: [id number] DC DATE: STATUS: ADM IN [facility] [address] [place] [address] END OF REPORT
--- NOTE | 2019-09-07 12:50 | NUR ---
1100OATIENT BROUGHT INTO UNIT FROM THE FLOOR VIA BED... PT IS OBTUNDED AND VSS UNSTABLE WITH HR 148 AND BP SYS 80...TEMP PER REPORT IS 101.. PLACED ON ICU MONITORING EQUIPMENT AND THIS IS CONFIRMED.. THERE IS A PIV IN THE LEFT FOREARM .. DR COLON IN UNIT WITH PATIENT AND HAS ORDERED A CONSULT FOR CVL PLACEMENT.. 24 HOUR URINE IN PROGRESS 1130 DR RODRIGUEZ IN TO SEE PATIENT PER CONSULT.. SPOKE WITH DR COLON 1140 DR COLON SPEAKING WITH MOTHER ON THE PHONE.. 1150 DR ARRINGTON IN UNIT .. DR COLON SPEAKING WITH HIM.. [address] ARR[address] LAB CALLED.. IT IS ORDERED STAT.. MOTHER IN TO SEE PATIENT .. DR ARRINGTON AT BEDSIDE.. SPOKE WITH MOTHER.. 1230 LAB IN TO DRAW BLOOD.. 1250 SODIUM CONTINUES [address] ARRINGTON 1300 MOTHER GONE FROM BEDSIDE..
[2019-09-07 12:58] LABS: CALCIUM 10.6 mg/dL (8.5-10.1); CARBON DIOXIDE 21.2 mmol/L (21.0-32.0)
[2019-09-07 12:59] LABS: CREATININE - SERUM 1.7 mg/dL (0.6-1.3)
[2019-09-07 13:00] LABS: ANION GAP 13.2 mmol/L (8-16); POTASSIUM - SERUM 3.4 mmol/L (3.5-5.1)
[2019-09-07 15:09] LABS: ANION GAP 13.7 mmol/L (8-16); CALCIUM 10.3 mg/dL (8.5-10.1); CARBON DIOXIDE 21.5 mmol/L (21.0-32.0); CREATININE - SERUM 1.8 mg/dL (0.6-1.3); POTASSIUM - SERUM 3.2 mmol/L (3.5-5.1)
[2019-09-07 15:33] LABS: NA - URINE 211 MMOL/L (20-110)
[2019-09-07 15:35] LABS: CREATININE - URINE 30.8 mg/dL (30-125)
[2019-09-07 15:38] LABS: NA - 24HR 369 mmol/24h (40-220)
--- NOTE | 2019-09-07 17:38 | NUR ---
1400 DR ARRINGTON REMAINS IN UNIT.. 1500 PROCAL DCd AND D5NS STARTED.. PER DR ARRINGTON.. ORDER FOR NGT RECEIVED.. 24 HOUR URINE SENT TO LAB 1600 MOTHER IN TO SEE PATIENT.. BALBINA CASEY IN TO SEE PATIENT AND SPOKE WITH MOTHER 1630 LAB DRAWN BMP HR REMAINS 143 BP 84/45 DR ARRINGTON CALLEREMAINS AWAKE BID PER DR COLON ORDERS RECIEVED.. 1645 NA [address] ARRINGTON 1730 WITHOUT CHANGES..
--- NOTE | 2019-09-07 18:16 | NUR ---
1814 COVID TEST DONE FOR ANTICIPATED TRANSFER TO ANOTHER FACILITY ,,, [facility]...
--- NOTE | 2019-09-07 18:42 | NUR ---
181 14 FR NGT PLACED INTO RIGHT NARE PLACEMENT CHECKED WITH AIR BOLUS.. TUBE FEEDINIG JEVITY AT 10CC/HR.. SOFT WRIST RESTRAINTS ON.. PER ORDER.. PIV STARTED IN LEFT UIPPER ARM ON THE LEFT.SALINE LOCKED..
[2019-09-07 18:53] LABS: INR 2.99 (0.85-1.17); PROTIME 30.5 SECONDS (11.6-15.0)
--- NOTE | 2019-09-07 19:00 | NUR ---
REPORT RECEIVED INITIAL ASSESSMENT COMPLETE SEE FLOWSHEET FOR FULL ASSESSMENT. CM READING ST 140'S NO ECTOPY ALARMS ON AND AUDIBLE. PER DAY SHIFT NURSE MD'S AWARE OF RATE UPPER 140'S. RESP EVEN AND NONLABORED BREATH SOUNDS CLEAR O2 SAT 98% ON ROOM AIR. PT ALERT BUT CONFUSED DIFFICULT TO UNDERSTAND SPEECH. REORIENTED. VSS AT THIS TIME WILL CONTINUE TO MONITOR.
[2019-09-07 19:46] LABS: CALCIUM 9.9 mg/dL (8.5-10.1); CARBON DIOXIDE 20.5 mmol/L (21.0-32.0); CREATININE - SERUM 1.7 mg/dL (0.6-1.3); POTASSIUM - SERUM 3.5 mmol/L (3.5-5.1)
--- NOTE | 2019-09-07 20:00 | NUR ---
DR WOOD UPDATE GIVEN NO NEW ORDERS AT THIS TIME
--- NOTE | 2019-09-07 20:10 | NUR ---
BALBINA CASEY CURRICULUM COORDINATOR HERE UPDATE AND LAB RESULTS GIVEN NO NEW ORDERS AT THIS TIME
--- NOTE | 2019-09-07 22:30 | NUR ---
URINE SAMPLE SENT TO LAB PER ORDERS
[2019-09-07 22:48] LABS: BILIRUBIN NEGATIVE (NEGATIVE); GLUCOSE NEGATIVE (NEGATIVE); KETONE NEGATIVE (NEGATIVE); NITRITE NEGATIVE (NEGATIVE); UROBILINOGEN NORMAL (NORMAL)
[2019-09-07 23:27] LABS: ANION GAP 12.6 mmol/L (8-16); CARBON DIOXIDE 19.9 mmol/L (21.0-32.0); CREATININE - SERUM 1.4 mg/dL (0.6-1.3); POTASSIUM - SERUM 3.5 mmol/L (3.5-5.1)
--- NOTE | 2019-09-07 23:55 | NUR ---
PT VOMITED MODERATE AMOUNT OF YELLOW BILE TUBE FEEDING OFF AND NGT TO LIWS. COMPLETE CHG LINEN CHANGE
[2019-09-08] VITALS (54 sets, daily range): BP systolic 80–108; BP diastolic 42–75
--- NOTE | 2019-09-08 | NUR ---
PAGED BALBINA CASEY APN INFORMED OF VOMITING
--- NOTE | 2019-09-08 00:43 | NUR ---
PT MOANING AND CRYING OUT WHEN TURNING TO CLEAN UP EARLIER AFTER HE VOMITED MEDICATED WITH PRN PAIN MED SEE EMAR WILL CONTINUE TO MONITOR
--- NOTE | 2019-09-08 03:00 | NUR ---
REASSESSMENT COMPLETE TUBE FEEDING STOPPED AND NGT TO LIWS AFTER PT VOMITED AT 0000. ORAL CARE PROVIDED AND REPOSITIONED.
[2019-09-08 03:51] LABS: MCH 27.5 pg (26.0-34.0); MCHC 33.3 g/dL (31.0-37.0); RDW 15.3 % (11.5-14.5)
[2019-09-08 03:53] LABS: RBC 3.02 10x6/uL (4.20-6.10); WBC 2.9 10x3/uL (4.8-10.8)
[2019-09-08 03:56] LABS: HEMATOCRIT 24.9 % (42.0-54.0); HEMOGLOBIN 8.3 g/dL (13.5-17.5); MCV 82.5 fL (80.0-100.0); PLATELET COUNT 119 10x3/uL (130-400)
[2019-09-08 04:03] LABS: BILIRUBIN - TOTAL 0.74 mg/dL (0.2-1.3); CALCIUM 9.8 mg/dL (8.5-10.1); CARBON DIOXIDE 23.4 mmol/L (21.0-32.0); CREATININE - SERUM 1.3 mg/dL (0.6-1.3); MAGNESIUM - SERUM 1.7 mg/dL (1.8-2.4); PHOSPHOROUS 2.9 mg/dL (2.5-4.9); POTASSIUM - SERUM 3.4 mmol/L (3.5-5.1)
[2019-09-08 04:04] LABS: ALBUMIN 2.3 g/dL (3.4-5.0); PROTEIN - SERUM 5.8 g/dL (6.4-8.2)
[2019-09-08 04:26] LABS: LYMPHOCYTES 21 % (15-50); MONOCYTES 10 % (2-11); NEUTROPHILS 69 % (40-80); PLATELET ESTIMATE DECREASED
[2019-09-08 07:44] LABS: ANION GAP 9.4 mmol/L (8-16); CALCIUM 9.9 mg/dL (8.5-10.1); CARBON DIOXIDE 21.8 mmol/L (21.0-32.0); CREATININE - SERUM 1.2 mg/dL (0.6-1.3); POTASSIUM - SERUM 3.2 mmol/L (3.5-5.1)
--- NOTE | 2019-09-08 09:00 | NUR ---
PT RESTING IN BED WITH EYES OPEN. PT STATED "MY PAIN MEDICINE" ASKED PT MULTIPLE TIMES IF HE WAS IN ANY PAIN AND PT DENIED EVERY TIME. NO ACUTE NEEDS OR DISTRESS NOTED AT THIS TIME. VSS. WILL CONT TO MONITOR.
--- NOTE | 2019-09-08 11:00 | NUR ---
REASSESSMENT COMPLETED PER FLOWSHEET, SEE FLOWSHEET FOR INFORMATION. VSS. WILL CONT TO MONITOR. ==
[2019-09-08 11:35] LABS: CALC OSMOLALITY 252 mosm/kg (275-300); CALCIUM 9.9 mg/dL (8.5-10.1); CARBON DIOXIDE 21.8 mmol/L (21.0-32.0); CHLORIDE - SERUM 98 mmol/L (98-107); CREATININE - SERUM 1.1 mg/dL (0.6-1.3); GLUCOSE 106 mg/dL (74-106); POTASSIUM - SERUM 3.2 mmol/L (3.5-5.1); SODIUM 126 mmol/L (136-145); UREA NITROGEN 13 mg/dL (7-18); eGFR NON AFRICAN AMERICAN 80 mL/min (90-120)
[2019-09-08 12:18] LABS: MAGNESIUM - SERUM 1.6 mg/dL (1.8-2.4); PHOSPHOROUS 2.8 mg/dL (2.5-4.9)
--- NOTE | 2019-09-08 13:00 | NUR ---
OBTAINED PHONE CONSENT FROM MOTHER JUNIOR EUBANKS FOR ADMINISTRATION OF BLOOD, WITNESSED BY WILMA RN. WILL CONT TO MONITOR.
[2019-09-08 15:41] LABS: CALC OSMOLALITY 253 mosm/kg (275-300); CALCIUM 9.4 mg/dL (8.5-10.1); CARBON DIOXIDE 20.3 mmol/L (21.0-32.0); CHLORIDE - SERUM 99 mmol/L (98-107); CREATININE - SERUM 1.1 mg/dL (0.6-1.3); GLUCOSE 115 mg/dL (74-106); POTASSIUM - SERUM 3.1 mmol/L (3.5-5.1); SODIUM 126 mmol/L (136-145); UREA NITROGEN 12 mg/dL (7-18); eGFR NON AFRICAN AMERICAN 80 mL/min (90-120)
--- NOTE | 2019-09-08 15:42 | NUR ---
CVL PLACED BY DR DU. CXR ORDERED AND CALLED.
--- NOTE | 2019-09-08 16:13 | NUR ---
DR DU PLACED CVL. 1ST PRBC STARTED. PT MOTHER HERE.
--- NOTE | 2019-09-08 16:46 | MORECARE ---
CASE MANAGEMENT DISCHARGE SUMMARY PATIENT: RONNIE LEMOS UNIT: [id number] ADM DATE: 08/25/19 AGE: 39 : [birth year] SEX: M ROOM/BED: D.2304 AUTHOR: TAMI,DOC PHYSICIAN: REFERRING PHYSICIAN: KAILEE GÓMEZ MD DATE OF SERVICE: 09/08/19 Discharge Plan Patient Name: RONNIE LEMOS Facility: [facility]:[place] : 1980 Planned Disposition: Home Hlth Svc w Plan Readm Anticipated Discharge Date: Discharge Date: Expected LOS: Initial Reviewer: [id number] Initial Review Date: 09/04/2019 Generated: 09/08/19 5:46 pm Comments DCP- Discharge Planning Updated by [email or web address]: Vanessa Langley on 09/08/19 3:[address] LATE ENTRY 09/07/19 CM that patient's mother is requesting that patient be transferred to [facility]. (She stated that she has been telling "them" all week) CAMERON was notified by unit nurse of this request this am. CM asked if Dr. Madison was aware of request and if he agreed to transfer. Nurse stated yes that he was aware and that the assistant warehouse manager also was aware. CM attempted to call [facility] to speak to bed control and never was able to speak with anyone. CM called [facility] physicians transfer line [phone] and spoke triage nurse Radha while CM was giving report on patient and why the request for transfer. CM was notified that patient was a rapid response and code sepsis. Patient was transferred to ICU. CAMERON informed Radha of this. Radha stated that she would have her hospitalist call Dr. Madison. Radha stated that if patient is going to be an ICU to ICU transfer then he will be put on a waiting list d/t ICU bed availability. Radha stated that she would keep CM updated on bed availability. Radha did advise that CM and physician may want to look at other facilities for higher level of care. Dr. Madison stated that he would speak to patient's mother to see if she would agree to a different hospital. Patient's mother is trying to decide and will let Dr. Madison know. CM will continue to follow and assist as needed with discharge planning / needs. DCP- Discharge Planning Updated by [email or web address]: Laynesylwia Henry on 09/04/19 8:[address] Patient Name: RONNIE LEMOS Admission Status: ER Accout number: [id number] Admission Date: 08-25-2019 : 1980 Admission Diagnosis:HYPERCALCEMIA Attending: KAILEE TIM Current LOS: 10 Anticipated DC Date: Planned Disposition: Home Hlth Svc w Plan Readm Primary Insurance: [employer] OUT OF STATE Discharge Planning Comments: CM met with patient at bedside after explaining CM role and obtaining verbal consent. CM discussed availability / needs of home health, REHAB and medical equipment. PATIENT STATES PLANS TO RETURN TO HIS MOMS HOUSE WHERE HE IS STAYING AND [facility]. TD SIGNED. [facility] HAS ALL THE EQUIPMENT HE NEEDS. CM WILL FOLLOW AND ASSIST WITH DC PLANNING NEEDED. Acquisitions Librarian: Layne Henry DCPIA - Discharge Planning Initial Assessment Updated by [id number]: Laynesylwia Henry on 09/04/19 9:19 am * Is the patient Alert and Oriented? Yes * PCP [facility] * Pharmacy [facility] * Preadmission Environment Home with Family * Other Equipment WHEEL CHAIR, HOSPITAL BED, [facility] HAS ALL EQUIPMENT * Community resources currently utilized Home Health * Please name any agencies selected above. [facility] * Additional services required to return to the preadmission environment? No * Can the patient safely return to the preadmission environment? Yes * Has this patient been hospitalized within the prior 30 days at any hospital? No Coverage Notice Reviewer: [id number] - Laynesylwia Henry Notice Issued Date-Time: 09/04/2019 9:20 Notice Type: Patient Choice Letter Notice Delivered To: Patient Relationship to Patient: Cook Chef Name: Delivery Method: HAND - Hand Delivered Renetta Days: Prior Verbal Notification: Recipient Understood Notice: Yes Recipient Signature: Yes Med Rec Note Co-signed by Attending: Coverage Notice Comment: [facility] Last DP export: 09/07/19 10:23 a Patient Name: RONNIE LEMOS Page [phone] at 1646 All edits/amendments must be made on the electronic document DICTATION DATE: 09/08/19 1646 LOOP PULLER: GERA 09/08/19 1646 RPT#: [id number] DC DATE: STATUS: ADM IN [facility] [address] [place] [address] END OF REPORT
[2019-09-08 19:45] LABS: CALC OSMOLALITY 262 mosm/kg (275-300); CALCIUM 9.5 mg/dL (8.5-10.1); CARBON DIOXIDE 23.1 mmol/L (21.0-32.0); CHLORIDE - SERUM 102 mmol/L (98-107); CREATININE - SERUM 1.1 mg/dL (0.6-1.3); GLUCOSE 117 mg/dL (74-106); POTASSIUM - SERUM 3.1 mmol/L (3.5-5.1); SODIUM 131 mmol/L (136-145); UREA NITROGEN 10 mg/dL (7-18); eGFR NON AFRICAN AMERICAN 80 mL/min (90-120)
--- NOTE | 2019-09-08 20:15 | NUR ---
REC'D FROM OFF-GOING NURSE, ASSUMED CARE AFTER BEDSIDE SHIFT REPORT. INITIAL ASSESSMENT COMPLETED AND RECORDED PER FLOW SHEET. UNABLE TO ELICIT A RESPONSE FROM HIM AT THIS TIME. ASSESSMENT WITHIN NORMAL LIMITS EXCEPT RIGID LIMBS, UNABLE TO GET HIM TO MOVE THEM WITHOUT PAIN. IN SOFT MAXIME WRIST RESTRAINTS TO PROTECT INVASIVE DEVICES. WILL MONITOR.
--- NOTE | 2019-09-08 23:30 | NUR ---
REPOSITIONED FOR COMFORT AND ROM ON RESTRAINT LIMBS. CONT STIFF BUT NON-VERBAL. NGT REMAINS TO LIWS. CONT TO MONITOR.
[2019-09-09] VITALS (26 sets, daily range): BP systolic 106–122; BP diastolic 69–91
--- NOTE | 2019-09-09 03:15 | NUR ---
HAD STARTED PRBC #2 @ 0100, INFUSING WITHOUT DIFFICULTY. VSS. WILL MONITOR.
[2019-09-09 05:52] LABS: BASOPHILS 0.3 % (0-2); EOSINOPHILS 6.5 % (0-7); LYMPHOCYTES 15.4 % (15-50); MCH 28.2 pg (26.0-34.0); MONOCYTES 10.9 % (2-11); NEUTROPHILS 65.9 % (40-80); PLATELET COUNT 102 10x3/uL (130-400); RDW 15.5 % (11.5-14.5); WBC 2.9 10x3/uL (4.8-10.8)
[2019-09-09 05:57] LABS: HEMATOCRIT 34.5 % (42.0-54.0); HEMOGLOBIN 11.4 g/dL (13.5-17.5); MCV 85.4 fL (80.0-100.0); RBC 4.04 10x6/uL (4.20-6.10)
--- NOTE | 2019-09-09 06:00 | NUR ---
INC OF LARGE FORM STOOL. PERIANAL CARE GIVEN, LINENS CHANGED. PRBC FINISHED AT 0345 W/O ADVERSE REACTION AT THIS TIME.
[2019-09-09 06:21] LABS: ALBUMIN 2.3 g/dL (3.4-5.0); ALKALINE PHOSPHATASE 357 U/L (30-120); ALT (SGPT) 53 U/L (10-68); CALC OSMOLALITY 264 mosm/kg (275-300); CALCIUM 9.9 mg/dL (8.5-10.1); CARBON DIOXIDE 21.7 mmol/L (21.0-32.0); CHLORIDE - SERUM 105 mmol/L (98-107); CREATININE - SERUM 0.9 mg/dL (0.6-1.3); GLUCOSE 93 mg/dL (74-106); MAGNESIUM - SERUM 1.8 mg/dL (1.8-2.4); PHOSPHOROUS 2.7 mg/dL (2.5-4.9); POTASSIUM - SERUM 3.2 mmol/L (3.5-5.1); PROTEIN - SERUM 5.8 g/dL (6.4-8.2); SODIUM 133 mmol/L (136-145); UREA NITROGEN 11 mg/dL (7-18); eGFR NON AFRICAN AMERICAN > 90 mL/min (90-120)
--- NOTE | 2019-09-09 09:30 | NUR ---
Nutrition consult: Pt is unable to tolerate TF 2/2 continued nausea, vomiting Labs reviewed RDN order ProcalAmine PPN @ 50 ml/hr. Recommend starting TPN @ 40 ml/hr to better meet pts estimated energy needs. RDN following.
[2019-09-09 11:46] LABS: CALC OSMOLALITY 265 mosm/kg (275-300); CALCIUM 9.7 mg/dL (8.5-10.1); CARBON DIOXIDE 21.6 mmol/L (21.0-32.0); CHLORIDE - SERUM 104 mmol/L (98-107); CREATININE - SERUM 0.9 mg/dL (0.6-1.3); GLUCOSE 109 mg/dL (74-106); SODIUM 133 mmol/L (136-145); UREA NITROGEN 10 mg/dL (7-18); eGFR NON AFRICAN AMERICAN > 90 mL/min (90-120)
[2019-09-09 11:47] LABS: POTASSIUM - SERUM 2.9 mmol/L (3.5-5.1)
[2019-09-09 15:19] LABS: CALC OSMOLALITY 263 mosm/kg (275-300); CALCIUM 9.9 mg/dL (8.5-10.1); CARBON DIOXIDE 22.1 mmol/L (21.0-32.0); CHLORIDE - SERUM 102 mmol/L (98-107); CREATININE - SERUM 0.9 mg/dL (0.6-1.3); GLUCOSE 111 mg/dL (74-106); SODIUM 132 mmol/L (136-145); UREA NITROGEN 8 mg/dL (7-18); eGFR NON AFRICAN AMERICAN > 90 mL/min (90-120)
[2019-09-09 15:20] LABS: POTASSIUM - SERUM 3.4 mmol/L (3.5-5.1)
--- NOTE | 2019-09-09 17:43 | MORECARE ---
CASE MANAGEMENT DISCHARGE SUMMARY PATIENT: RONNIE LEMOS UNIT: [id number] ADM DATE: 08/25/19 AGE: 39 : 82 SEX: M ROOM/BED: D.2304 AUTHOR: TAMI,DOC PHYSICIAN: REFERRING PHYSICIAN: KAILEE GÓMEZ MD DATE OF SERVICE: 09/09/19 Discharge Plan Patient Name: RONNIE LEMOS Facility: [facility]:[place] : 1980 Planned Disposition: Home Hlth Svc w Plan Readm Anticipated Discharge Date: Discharge Date: Expected LOS: Initial Reviewer: [email or web address] Initial Review Date: 09/04/2019 Generated: 09/09/19 6:42 pm Comments DCP- Discharge Planning Updated by [id number]: Vanessa Langley on 09/08/19 3:[address] LATE ENTRY 09/07/19 CM that patient's mother is requesting that patient be transferred to [facility]. (She stated that she has been telling "them" all week) CAMERON was notified by unit nurse of this request this am. CM asked if Dr. Madison was aware of request and if he agreed to transfer. Nurse stated yes that he was aware and that the casting house laborer also was aware. CM attempted to call [facility] to speak to bed control and never was able to speak with anyone. CM called [facility] physicians transfer line [phone] and spoke triage nurse Radha while CM was giving report on patient and why the request for transfer. CM was notified that patient was a rapid response and code sepsis. Patient was transferred to ICU. CAMERON informed Radha of this. Radha stated that she would have her hospitalist call Dr. Madison. Radha stated that if patient is going to be an ICU to ICU transfer then he will be put on a waiting list d/t ICU bed availability. Radha stated that she would keep CM updated on bed availability. Radha did advise that CM and physician may want to look at other facilities for higher level of care. Dr. Madison stated that he would speak to patient's mother to see if she would agree to a different hospital. Patient's mother is trying to decide and will let Dr. Madison know. CM will continue to follow and assist as needed with discharge planning / needs. DCP- Discharge Planning Updated by [email or web address]: Layne Henry on 09/04/19 8:[address] Patient Name: RONNIE LEMOS Admission Status: ER Accout number: [id number] Admission Date: 08-25-2019 : 1980 Admission Diagnosis:HYPERCALCEMIA Attending: KAILEE TIM Current LOS: 10 Anticipated DC Date: Planned Disposition: Home Hlth Svc w Plan Readm Primary Insurance: [employer] OUT OF STATE Discharge Planning Comments: CM met with patient at bedside after explaining CM role and obtaining verbal consent. CM discussed availability / needs of home health, REHAB and medical equipment. PATIENT STATES PLANS TO RETURN TO HIS MOMS HOUSE WHERE HE IS STAYING AND [facility]. TD SIGNED. [facility] HAS ALL THE EQUIPMENT HE NEEDS. CM WILL FOLLOW AND ASSIST WITH DC PLANNING NEEDED. Butt Presser: Laynesylwia Henry DCPIA - Discharge Planning Initial Assessment Updated by [id number]: Layne Henry on 09/04/19 9:19 am * Is the patient Alert and Oriented? Yes * PCP [facility] * Pharmacy [facility] * Preadmission Environment Home with Family * Other Equipment WHEEL CHAIR, HOSPITAL BED, [facility] HAS ALL EQUIPMENT * Community resources currently utilized Home Health * Please name any agencies selected above. [facility] * Additional services required to return to the preadmission environment? No * Can the patient safely return to the preadmission environment? Yes * Has this patient been hospitalized within the prior 30 days at any hospital? No External Providers External Provider: OTHER-OTHER Next Contact Date: Service Request Date: Service Type: Resolution: Reviewer: Comments: Coverage Notice Reviewer: [id number] - Layne Elaine Notice Issued Date-Time: 09/04/2019 9:20 Notice Type: Patient Choice Letter Notice Delivered To: Patient Relationship to Patient: Pouch Making Machine Operator Name: Delivery Method: HAND - Hand Delivered Renetta Days: Prior Verbal Notification: Recipient Understood Notice: Yes Recipient Signature: Yes Med Rec Note Co-signed by Attending: Coverage Notice Comment: [facility] Last DP export: 09/08/19 3:46 p Patient Name: RONNIE LEMOS Page [phone] at 1743 All edits/amendments must be made on the electronic document DICTATION DATE: 09/09/191742 PER DIEM INTERPRETER: GERA 09/09/191742 RPT#: [id number] DC DATE: STATUS: ADM IN [facility] [address] [place] [address] END OF REPORT
--- NOTE | 2019-09-09 17:57 | MORECARE ---
CASE MANAGEMENT DISCHARGE SUMMARY PATIENT: RONNIE LEMOS UNIT: [id number] ADM DATE: 08/25/19 AGE: 39 : [birth year] SEX: M ROOM/BED: D.2304 AUTHOR: TAMI,DOC PHYSICIAN: REFERRING PHYSICIAN: KAILEE GÓMEZ MD DATE OF SERVICE: 09/09/19 Discharge Plan Patient Name: RONNIE LEMOS Facility: [facility]:[place] : 1980 Planned Disposition: Home Hlth Svc w Plan Readm Anticipated Discharge Date: Discharge Date: Expected LOS: Initial Reviewer: [id number] Initial Review Date: 09/04/2019 Generated: 09/09/19 6:56 pm Comments DCP- Discharge Planning Updated by [id number]: Vanessa Langley on 09/08/19 3:[address] LATE ENTRY 09/07/19 CM that patient's mother is requesting that patient be transferred to [facility]. (She stated that she has been telling "them" all week) CAMERON was notified by unit nurse of this request this am. CM asked if Dr. Madison was aware of request and if he agreed to transfer. Nurse stated yes that he was aware and that the warehouse distribution associate also was aware. CM attempted to call [facility] to speak to bed control and never was able to speak with anyone. CM called [facility] physicians transfer line [phone] and spoke triage nurse Radha while CM was giving report on patient and why the request for transfer. CM was notified that patient was a rapid response and code sepsis. Patient was transferred to ICU. CAMERON informed Radha of this. Radha stated that she would have her hospitalist call Dr. Madison. Radha stated that if patient is going to be an ICU to ICU transfer then he will be put on a waiting list d/t ICU bed availability. Radha stated that she would keep CM updated on bed availability. Radha did advise that CM and physician may want to look at other facilities for higher level of care. Dr. Madison stated that he would speak to patient's mother to see if she would agree to a different hospital. Patient's mother is trying to decide and will let Dr. Madison know. CM will continue to follow and assist as needed with discharge planning / needs. DCP- Discharge Planning Updated by [id number]: Layne Henry on 09/04/19 8:[address] Patient Name: RONNIE LEMOS Admission Status: ER Accout number: [id number] Admission Date: 08-25-2019 : 1980 Admission Diagnosis:HYPERCALCEMIA Attending: KAILEE TIM Current LOS: 10 Anticipated DC Date: Planned Disposition: Home Hlth Svc w Plan Readm Primary Insurance: [employer] OUT OF STATE Discharge Planning Comments: CM met with patient at bedside after explaining CM role and obtaining verbal consent. CM discussed availability / needs of home health, REHAB and medical equipment. PATIENT STATES PLANS TO RETURN TO HIS MOMS HOUSE WHERE HE IS STAYING AND [facility]. TD SIGNED. [facility] HAS ALL THE EQUIPMENT HE NEEDS. CM WILL FOLLOW AND ASSIST WITH DC PLANNING NEEDED. Ballroom Dance Instructor: Layne Henry DCPIA - Discharge Planning Initial Assessment Updated by [id number]: Layne Henry on 09/04/19 9:19 am * Is the patient Alert and Oriented? Yes * PCP [facility] * Pharmacy [facility] * Preadmission Environment Home with Family * Other Equipment WHEEL CHAIR, HOSPITAL BED, [facility] HAS ALL EQUIPMENT * Community resources currently utilized Home Health * Please name any agencies selected above. [facility] * Additional services required to return to the preadmission environment? No * Can the patient safely return to the preadmission environment? Yes * Has this patient been hospitalized within the prior 30 days at any hospital? No External Providers External Provider: OTHER-OTHER Next Contact Date: Service Request Date: Service Type: Resolution: Reviewer: Comments: Coverage Notice Reviewer: [id number] - Layne Elaine Notice Issued Date-Time: 09/04/2019 9:20 Notice Type: Patient Choice Letter Notice Delivered To: Patient Relationship to Patient: Visual Communications Instructor Name: Delivery Method: HAND - Hand Delivered Renetta Days: Prior Verbal Notification: Recipient Understood Notice: Yes Recipient Signature: Yes Med Rec Note Co-signed by Attending: Coverage Notice Comment: [facility] Last DP export: 09/09/19 4:43 p Patient Name: RONNIE LEMOS Page [phone] at 1757 All edits/amendments must be made on the electronic document DICTATION DATE: 09/09/191755 POWER CRANE OPERATOR: GERA 09/09/191755 RPT#: [id number] DC DATE: STATUS: ADM IN [facility] [address] [place] [address] END OF REPORT
--- NOTE | 2019-09-09 18:27 | MORECARE ---
CASE MANAGEMENT DISCHARGE SUMMARY PATIENT: RONNIE LEMOS UNIT: [id number] ADM DATE: 08/25/19 AGE: 39 : 84 SEX: M ROOM/BED: D.2304 AUTHOR: TAMI,DOC PHYSICIAN: REFERRING PHYSICIAN: KAILEE GÓMEZ MD DATE OF SERVICE: 09/09/19 Discharge Plan Patient Name: RONNIE LEMOS Facility: [facility]:[place] : 1980 Planned Disposition: Home Hlth Svc w Plan Readm Anticipated Discharge Date: Discharge Date: Expected LOS: Initial Reviewer: [email or web address] Initial Review Date: 09/04/2019 Generated: 09/09/19 7:26 pm Comments DCP- Discharge Planning Updated by [id number]: Vanessa Langley on 09/09/19 5:[address] CM called and spoke with patient's mother Lucero Ramos [phone] to find out if she would agree for to send out request for transfer to both [facility], [facility], and [facility] for Endocrinology services. Mother agreed that it was alright to send out request. CM called [facility] to reinitiate transfer patient has been placed on waiting list for ICU bed. CM called [facility] transfer Center and patient was also placed on waiting list for ICU transfer. CM contacted [facility] in [place] and neither have endocrinology services available. CM will continue to follow and assist as needed with discharge planning / needs. DCP- Discharge Planning Updated by [id number]: Vanessa Langley on 09/08/19 3:[address] LATE ENTRY 09/07/19 CM that patient's mother is requesting that patient be transferred to [facility]. (She stated that she has been telling "them" all week) CAMERON was notified by unit nurse of this request this am. CAMERON asked if Dr. Mdaison was aware of request and if he agreed to transfer. Nurse stated yes that he was aware and that the superintendent warehouse also was aware. CM attempted to call [facility] to speak to bed control and never was able to speak with anyone. CAMERON called [facility] physicians transfer line [phone] and spoke triage nurse Radha while CM was giving report on patient and why the request for transfer. CM was notified that patient was a rapid response and code sepsis. Patient was transferred to ICU. CM informed Radha of this. Radha stated that she would have her hospitalist call Dr. Madison. Radha stated that if patient is going to be an ICU to ICU transfer then he will be put on a waiting list d/t ICU bed availability. Radha stated that she would keep CM updated on bed availability. Radha did advise that CM and physician may want to look at other facilities for higher level of care. Dr. Madison stated that he would speak to patient's mother to see if she would agree to a different hospital. Patient's mother is trying to decide and will let Dr. Madison know. CM will continue to follow and assist as needed with discharge planning / needs. DCP- Discharge Planning Updated by [id number]: Layne Henry on 09/04/19 8:[address] Patient Name: RONNIE LEMOS Admission Status: ER Accout number: [id number] Admission Date: 08-25-2019 : 1980 Admission Diagnosis:HYPERCALCEMIA Attending: KAILEE TIM Current LOS: 10 Anticipated DC Date: Planned Disposition: Home Hlth Svc w Plan Readm Primary Insurance: [employer] OUT OF STATE Discharge Planning Comments: CM met with patient at bedside after explaining CM role and obtaining verbal consent. CM discussed availability / needs of home health, REHAB and medical equipment. PATIENT STATES PLANS TO RETURN TO HIS MOMS HOUSE WHERE HE IS STAYING AND [facility]. TD SIGNED. STATES HAS ALL THE EQUIPMENT HE NEEDS. CM WILL FOLLOW AND ASSIST WITH DC PLANNING NEEDED. Process Safety Engineering Technologist: Layne Henry DCPIA - Discharge Planning Initial Assessment Updated by [id number]: Layne Henry on 09/04/19 9:19 am * Is the patient Alert and Oriented? Yes * PCP [facility] * [facility] * Preadmission Environment Home with Family * Other Equipment WHEEL CHAIR, HOSPITAL BED, [facility] HAS ALL EQUIPMENT * Community resources currently utilized Home Health * Please name any agencies selected above. [facility] * Additional services required to return to the preadmission environment? No * Can the patient safely return to the preadmission environment? Yes * Has this patient been hospitalized within the prior 30 days at any hospital? No Coverage Notice Reviewer: [id number] - Layne Henry Notice Issued Date-Time: 09/04/2019 9:20 Notice Type: Patient Choice Letter Notice Delivered To: Patient Relationship to Patient: Funeral Home General Manager Name: Delivery Method: HAND - Hand Delivered Renetta Days: Prior Verbal Notification: Recipient Understood Notice: Yes Recipient Signature: Yes Med Rec Note Co-signed by Attending: Coverage Notice Comment: [facility] Last DP export: 09/09/19 4:57 p Patient Name: RONNIE LEMOS Page [phone] at 1827 All edits/amendments must be made on the electronic document DICTATION DATE: 09/09/191825 SUPPLY CHAIN ASSOCIATE: GERA 09/09/191825 RPT#: [id number] DC DATE: STATUS: ADM IN [facility] [address] [place] [address] END OF REPORT
[2019-09-09 19:08] LABS: OVA + PARASITE EXAM Final report (())
[2019-09-09 20:34] LABS: CALC OSMOLALITY 265 mosm/kg (275-300); CALCIUM 9.4 mg/dL (8.5-10.1); CHLORIDE - SERUM 103 mmol/L (98-107); CREATININE - SERUM 0.7 mg/dL (0.6-1.3); GLUCOSE 135 mg/dL (74-106); POTASSIUM - SERUM 3.7 mmol/L (3.5-5.1); SODIUM 132 mmol/L (136-145); UREA NITROGEN 10 mg/dL (7-18); eGFR NON AFRICAN AMERICAN > 90 mL/min (90-120)
--- NOTE | 2019-09-09 20:35 | NUR ---
PT MOTHER NOTIFIED AND UPDATED ON PT STATUS. RESTING COMFORTABLY AT THIS TIME. MOTHER TO BRING CELL PHONE TONIGHT. PT AWAITING TRANSFER TO [facility]. WILL CONTINUE TO MONITOR.
[2019-09-09 22:53] LABS: CALC OSMOLALITY 263 mosm/kg (275-300); CALCIUM 9.6 mg/dL (8.5-10.1); CARBON DIOXIDE 23.5 mmol/L (21.0-32.0); CHLORIDE - SERUM 103 mmol/L (98-107); CREATININE - SERUM 0.8 mg/dL (0.6-1.3); GLUCOSE 137 mg/dL (74-106); POTASSIUM - SERUM 3.8 mmol/L (3.5-5.1); SODIUM 131 mmol/L (136-145); UREA NITROGEN 9 mg/dL (7-18); eGFR NON AFRICAN AMERICAN > 90 mL/min (90-120)
[2019-09-10] VITALS (18 sets, daily range): BP systolic 112–132; BP diastolic 78–90
--- NOTE | 2019-09-10 03:01 | NUR ---
PT RESTING WITH EYES CLOSED RR EVEN AND UNLABORED. VITALS STABLE NO S/S OF DISTRESS AT THIS TIME. BED LOW CALL LIGHT WITHIN REACH SIDE RAILS UP X2. WILL CONTINUE TO MONITOR.
[2019-09-10 04:33] LABS: BASOPHILS 0 % (0-2); EOSINOPHILS 0.3 % (0-7); HEMATOCRIT 34.8 % (42.0-54.0); HEMOGLOBIN 11.6 g/dL (13.5-17.5); IMMATURE GRANULOCYTES 0.6 % (0-5); LYMPHOCYTES 14.9 % (15-50); MCH 28.4 pg (26.0-34.0); MCHC 33.3 g/dL (31.0-37.0); MCV 85.3 fL (80.0-100.0); MEAN PLATELET VOLUME 9.1 fL (7.4-10.4); MONOCYTES 12.4 % (2-11); NEUTROPHILS 71.8 % (40-80); RBC 4.08 10x6/uL (4.20-6.10); RDW 15.4 % (11.5-14.5); WBC 3.2 10x3/uL (4.8-10.8)
[2019-09-10 04:41] LABS: PLATELET COUNT 123 10x3/uL (130-400)
[2019-09-10 04:47] LABS: ALBUMIN 2.2 g/dL (3.4-5.0); ALKALINE PHOSPHATASE 303 U/L (30-120); ALT (SGPT) 43 U/L (10-68); BILIRUBIN - TOTAL 0.61 mg/dL (0.2-1.3); CALC OSMOLALITY 265 mosm/kg (275-300); CALCIUM 9.1 mg/dL (8.5-10.1); CARBON DIOXIDE 23.9 mmol/L (21.0-32.0); CHLORIDE - SERUM 102 mmol/L (98-107); CREATININE - SERUM 0.8 mg/dL (0.6-1.3); GLUCOSE 131 mg/dL (74-106); PHOSPHOROUS 2.3 mg/dL (2.5-4.9); POTASSIUM - SERUM 3.7 mmol/L (3.5-5.1); PROTEIN - SERUM 5.9 g/dL (6.4-8.2); SODIUM 132 mmol/L (136-145); UREA NITROGEN 10 mg/dL (7-18); eGFR NON AFRICAN AMERICAN > 90 mL/min (90-120)
[2019-09-10 04:57] LABS: MAGNESIUM - SERUM 1.3 mg/dL (1.8-2.4)
--- NOTE | 2019-09-10 06:13 | NUR ---
PT RESTIN COMFORTABLY AT THIS TIME. RR EVEN AND UNLABORED. NO S/S OF PAIN OR DISTRESS. VITALS STABLE. BED LOW CALL LIGHT WITHIN REACH WILL CONTINUE TO MONITOR.
[2019-09-10 11:10] LABS: CALCIUM - 24HR 457 mg/24 hr (47-462); CALCIUM - UR 26.1 mg/dL (Not Estab.)
--- NOTE | 2019-09-10 15:00 | NUR ---
TRANSFER TO FLOOR WITH PHONE.
--- NOTE | 2019-09-10 15:10 | NUR ---
PATIENT RECEIVED FROM ICU TO ROOM 2232.
--- NOTE | 2019-09-10 15:37 | NUR ---
OT NOTE: PT COMPLETED HAND AND FACE HYGIENE WITH MUSTAPHA Zarate. PT COMPLETED BUE PROM TOLERTED. [id number] THANK YOU,CLAUDIA GRADY
--- NOTE | 2019-09-10 15:54 | NUR ---
PATIENT TURNED TO LEFT SIDE.
--- NOTE | 2019-09-10 17:58 | NUR ---
PATIENT SLEEPING. WILL CONTINUE TO MONITOR.
--- NOTE | 2019-09-10 20:00 | NUR ---
PT SITTING UP IN BED WITH HOME CAREGIVER AT BEDSIDE. UPDATE GIVEN. PT ALERT AT THIS TIME, ORIENTED TO SELF ONLY. CAREGIVER GAVE PT BATH. PT COUGHING OF WHITE FOAM. NGT TO LIWS. RIGHT CVL INFUSING PROCAL @ 50, D5NS @ 100. ROBLES IN PLACE. FOAM PROTECTORS TO BILAT HEELS AND LEFT ELBOW. RIGHT ARM PROPPED ON PILLOW. SWELLING NOTED TO LEFT HAND AND BILAT FEET. CAREGIVER DENIES NEEDS. CL IN REACH, WILL CTM
[2019-09-11] VITALS: BP 114/76
[2019-09-11 04:00] VITALS: BP 121/85
--- NOTE | 2019-09-11 07:00 | NUR ---
ALERT AND ORIENTED RESTING IN BED WITH EYES OPEN. NO C/O PAIN. NO S/S OF ACUTE DISTRESS NOTED. BEDFAST AT THIS TIME. NG TUBE TO RIGHT NARE, ON L/I/S. IV TO LEFT UPPER ARM AND LEFT AC, SL. RIGHT CVL, D5NS INFUSING @ 100ML/HR AND PROCAL INFUSING @ 50ML/HR. SITES PATENT WITHOUT REDNESS OR SWELLING. ON 1ST STEP OVERLAY MATTRESS. HEEL PROTECTORS ON BILATERAL HEELS AND LEFT ELBOW D/T STAGE 1 PRESSURE ULCERS. POSSIBLE TRANSFER TO [facility]. PHOSPHORUS 1.6 THIS AM, PHYSICIAN ORDERED MED TO REPLACE. NOT TOLERATING MED AT THIS TIME. DENIES ANY NEEDS AT THIS TIME. CALL LIGHT IN REACH. WILL CONTINUE TO MONITOR.
[2019-09-11 07:02] LABS: MAGNESIUM - SERUM 1.9 mg/dL (1.8-2.4)
[2019-09-11 07:03] LABS: PHOSPHOROUS 1.6 mg/dL (2.5-4.9)
[2019-09-11 07:53] LABS: BASOPHILS 0.2 % (0-2); EOSINOPHILS 0.2 % (0-7); HEMATOCRIT 30.9 % (42.0-54.0); HEMOGLOBIN 10.1 g/dL (13.5-17.5); IMMATURE GRANULOCYTES 0.4 % (0-5); LYMPHOCYTES 19.2 % (15-50); MCH 28.3 pg (26.0-34.0); MCHC 32.7 g/dL (31.0-37.0); MCV 86.6 fL (80.0-100.0); MEAN PLATELET VOLUME 9.4 fL (7.4-10.4); MONOCYTES 15.3 % (2-11); NEUTROPHILS 64.7 % (40-80); PLATELET COUNT 162 10x3/uL (130-400); RBC 3.57 10x6/uL (4.20-6.10); RDW 15.4 % (11.5-14.5); WBC 5.4 10x3/uL (4.8-10.8)
[2019-09-11 07:57] LABS: ALBUMIN 2.1 g/dL (3.4-5.0); ALKALINE PHOSPHATASE 237 U/L (30-120); BILIRUBIN - TOTAL 0.28 mg/dL (0.2-1.3); CALCIUM 8.3 mg/dL (8.5-10.1); CARBON DIOXIDE 22.1 mmol/L (21.0-32.0); CHLORIDE - SERUM 104 mmol/L (98-107); GLUCOSE 115 mg/dL (74-106); POTASSIUM - SERUM 3.3 mmol/L (3.5-5.1); PROTEIN - SERUM 5.5 g/dL (6.4-8.2); SODIUM 136 mmol/L (136-145)
[2019-09-11 08:00] LABS: ALT (SGPT) 31 U/L (10-68); CALC OSMOLALITY 272 mosm/kg (275-300); CREATININE - SERUM 0.5 mg/dL (0.6-1.3); UREA NITROGEN 13 mg/dL (7-18); eGFR NON AFRICAN AMERICAN > 90 mL/min (90-120)
[2019-09-11 09:17] VITALS: BP 135/79
--- NOTE | 2019-09-11 09:50 | NUR ---
THIS NURSE NOTIFIED DR. RILEY OF CONSULT FOR PATIENT. DR. RILEY STATED THAT HE HAS ALREADY SEEN PATIENT AND REVIEWED SCANS. SCANS WERE WNL. PHYSICIAN STATED HE DOESN'T KNOW WHAT THE OTHER PHYSICIANS ARE WANTING HIM TO DO.
--- NOTE | 2019-09-11 13:11 | NUR ---
I have reviewed this patient and I concur with the Shift Assessment completed by the Licensed Practical Nurse today this shift.
--- NOTE | 2019-09-11 13:29 | MORECARE ---
CASE MANAGEMENT DISCHARGE SUMMARY PATIENT: RONNIE LEMOS UNIT: [id number] ADM DATE: 08/25/19 AGE: 39 : [birth year] SEX: M ROOM/BED: D.2232 AUTHOR: TAMI,DOC PHYSICIAN: REFERRING PHYSICIAN: KAILEE GÓMEZ MD DATE OF SERVICE: 09/11/19 Discharge Plan Patient Name: RONNIE LEMOS Facility: [facility]:[place] : 1980 Planned Disposition: Home Hlth Svc w Plan Readm Anticipated Discharge Date: Discharge Date: Expected LOS: Initial Reviewer: [email or web address] Initial Review Date: 09/04/2019 Generated: 09/11/19 2:28 pm Comments DCP- Discharge Planning Updated by [email or web address]: Erika Martinez on 09/11/19 12:[address] CALLED [facility] ABOUT THE TRANSFER AND TO LET THEM KNOW HE HAS MOVED TO A MED SURG BED. I HAD TO START THE PROCESS OVER I SPOKE WITH RAF AT [facility], TRANSFER PROCESS HAS STARTED WAITING ON ACCEPTING MD AND BED DCP- Discharge Planning Updated by [id number]: Vanessa Langley on 09/09/19 5:[address] CM called and spoke with patient's mother Lucero Ramos [phone] to find out if she would agree for CM to send out request for transfer to both [facility], [facility], and [facility] for Endocrinology services. Mother agreed that it was alright to send out request. CM called [facility] to reinitiate transfer patient has been placed on waiting list for ICU bed. CM called [facility] transfer Center and patient was also placed on waiting list for ICU transfer. CM contacted [facility] in [place] and neither have endocrinology services available. CM will continue to follow and assist as needed with discharge planning / needs. DCP- Discharge Planning Updated by [id number]: Vanessa Langley on 09/08/19 3:[address] LATE ENTRY 09/07/19 CM that patient's mother is requesting that patient be transferred to [facility]. (She stated that she has been telling "them" all week) CAMERON was notified by unit nurse of this request this am. CAMERON asked if Dr. Madison was aware of request and if he agreed to transfer. Nurse stated yes that he was aware and that the boiler house supervisor also was aware. CM attempted to call [facility] to speak to bed control and never was able to speak with anyone. CM called [facility] physicians transfer line [phone] and spoke triage nurse Radha while CM was giving report on patient and why the request for transfer. CM was notified that patient was a rapid response and code sepsis. Patient was transferred to ICU. CM informed Radha of this. Radha stated that she would have her hospitalist call Dr. Madison. Radha stated that if patient is going to be an ICU to ICU transfer then he will be put on a waiting list d/t ICU bed availability. Radha stated that she would keep CM updated on bed availability. Radha did advise that CM and physician may want to look at other facilities for higher level of care. Dr. Madison stated that he would speak to patient's mother to see if she would agree to a different hospital. Patient's mother is trying to decide and will let Dr. Madison know. CM will continue to follow and assist as needed with discharge planning / needs. DCP- Discharge Planning Updated by [id number]: Layne Henry on 09/04/19 8:[address] Patient Name: RONNIE LEMOS Admission Status: ER Accout number: [id number] Admission Date: 08-25-2019 : 1980 Admission Diagnosis:HYPERCALCEMIA Attending: KAILEE TIM Current LOS: 10 Anticipated DC Date: Planned Disposition: Home Hlth Svc w Plan Readm Primary Insurance: [employer] OUT OF STATE Discharge Planning Comments: CM met with patient at bedside after explaining CM role and obtaining verbal consent. CM discussed availability / needs of home health, REHAB and medical equipment. PATIENT STATES PLANS TO RETURN TO HIS MOMS HOUSE WHERE HE IS STAYING AND [facility]UME [facility]. TD SIGNED. STATES HAS ALL THE EQUIPMENT HE NEEDS. CM WILL FOLLOW AND ASSIST WITH DC PLANNING NEEDED. Business Applications Developer: Layne Henry DCPIA - Discharge Planning Initial Assessment Updated by [id number]: Layne Henry on 09/04/19 9:19 am * Is the patient Alert and Oriented? Yes * PCP [facility] * Pharmacy [facility] * Preadmission Environment Home with Family * Other Equipment WHEEL CHAIR, HOSPITAL BED, STATES HAS ALL EQUIPMENT * Community resources currently utilized Home Health * Please name any agencies selected above. [facility] * Additional services required to return to the preadmission environment? No * Can the patient safely return to the preadmission environment? Yes * Has this patient been hospitalized within the prior 30 days at any hospital? No Coverage Notice Reviewer: [id number] Bruna Henry Notice Issued Date-Time: 09/04/2019 9:20 Notice Type: Patient Choice Letter Notice Delivered To: Patient Relationship to Patient: Sap Grc Security Name: Delivery Method: HAND - Hand Delivered Renetta Days: Prior Verbal Notification: Recipient Understood Notice: Yes Recipient Signature: Yes Med Rec Note Co-signed by Attending: Coverage Notice Comment: [facility] Last DP export: 09/09/19 5:27 p Patient Name: RONNIE LEMOS Page [id number] at 1329 All edits/amendments must be made on the electronic document DICTATION DATE: 09/11/19 1328 SKIVER COUNTER: GERA 09/11/19 1328 RPT#: [id number] DC DATE: STATUS: ADM IN [facility] [address] [place] [address] END OF REPORT
--- NOTE | 2019-09-11 14:18 | NUR ---
CHANGED CVL DRESSING TO RIGHT CHEST USING STERILE TECHNIQUE.
--- NOTE | 2019-09-11 14:39 | NUR ---
OT NOTE: PT LIEING IN BED ALERT BUT WITH LIMITED VERBALIZATION.. MOM AT BEDSIDE..PERFORMED PROM TO ALL JOINTS.. PT WITH LIMITED PASSIVE RANGE IN B DORSIFLEX AND DOES NOT TOLERATE MUCH PASSIVE HIP FLEX DUE TO PAIN. PERFORMED BETTER WITH UES TODAY. A/AROM FOR SHOULDER FLEX AND ELBOW FLEX.. PT WAS ABLE TO TOLERATE MODERATE PRESSURE AGAINST ELBOW EXT.. GOVERNMENT PROFESSOR STRENGTH VERY GOOD KAROL TODAY (VERY POOR YESTERDAY). PT REFUSED TO ATTEMPT TO SIT UP ON EOB TODAY. MOM STATES THAT THEY ARE WAITING FOR AVAILABLE ROOM AT [facility]. PTS LES WERE POSIITONED ON PILLOWS WITH HEEL PROTECTORS AND TOWELS PLACED UNDER LATERAL SIDE OF B LES TO PROVIDE MORE INTERNAL ROTATION. PT HAS BEEN LIEING EXTERNALLY ROTATED AT HIPS WITH INCREASED TIGHTNESS NOTED IN INTERNAL ROTATION. CYNTHIA WARNER, OTR/L [phone]
[2019-09-11 14:41] VITALS: BP 126/74
--- NOTE | 2019-09-11 16:30 | MORECARE ---
CASE MANAGEMENT DISCHARGE SUMMARY PATIENT: RONNIE LEMOS UNIT: [id number] ADM DATE: 08/25/19 AGE: 39 : 84 SEX: M ROOM/BED: D.2232 AUTHOR: TAMI,DOC PHYSICIAN: REFERRING PHYSICIAN: KAILEE GÓMEZ MD DATE OF SERVICE: 09/11/19 Discharge Plan Patient Name: RONNIE LEMOS Facility: [facility]:[place] : 1980 Planned Disposition: Home Hlth Svc w Plan Readm Anticipated Discharge Date: Discharge Date: Expected LOS: Initial Reviewer: [id number] Initial Review Date: 09/04/2019 Generated: 09/11/19 5:29 pm Comments DCP- Discharge Planning Updated by [id number]: Erika Martinez on 09/11/19 12:[address] CALLED [facility] ABOUT THE TRANSFER AND TO LET THEM KNOW HE HAS MOVED TO A MED SURG BED. I HAD TO START THE PROCESS OVER I SPOKE WITH RAF AT [facility], TRANSFER PROCESS HAS STARTED WAITING ON ACCEPTING MD AND BED DCP- Discharge Planning Updated by [id number]: Vanessa Langley on 09/09/19 5:[address] CM called and spoke with patient's mother Lucero Ramos [phone] to find out if she would agree for CM to send out request for transfer to both [facility], [facility], and [facility] for Endocrinology services. Mother agreed that it was alright to send out request. CM called [facility] to reinitiate transfer patient has been placed on waiting list for ICU bed. CM called [facility] transfer Center and patient was also placed on waiting list for ICU transfer. CM contacted [facility] in [place] and neither have endocrinology services available. CM will continue to follow and assist as needed with discharge planning / needs. DCP- Discharge Planning Updated by [id number]: Vanessa Langley on 09/08/19 3:[address] LATE ENTRY 09/07/19 CM that patient's mother is requesting that patient be transferred to [facility]. (She stated that she has been telling "them" all week) CAMERON was notified by unit nurse of this request this am. CAMERON asked if Dr. Madison was aware of request and if he agreed to transfer. Nurse stated yes that he was aware and that the salesperson household appliances also was aware. CM attempted to call [facility] to speak to bed control and never was able to speak with anyone. CM called [facility] physicians transfer line [phone] and spoke triage nurse Radha while CM was giving report on patient and why the request for transfer. CM was notified that patient was a rapid response and code sepsis. Patient was transferred to ICU. CM informed Radha of this. Radha stated that she would have her hospitalist call Dr. Madison. Radha stated that if patient is going to be an ICU to ICU transfer then he will be put on a waiting list d/t ICU bed availability. Radha stated that she would keep CM updated on bed availability. Radha did advise that CM and physician may want to look at other facilities for higher level of care. Dr. Madison stated that he would speak to patient's mother to see if she would agree to a different hospital. Patient's mother is trying to decide and will let Dr. Madison know. CM will continue to follow and assist as needed with discharge planning / needs. DCP- Discharge Planning Updated by [email or web address]: Layne Henry on 09/04/19 8:[address] Patient Name: RONNIE LEMOS Admission Status: ER Accout number: [id number] Admission Date: 08-25-2019 : 1980 Admission Diagnosis:HYPERCALCEMIA Attending: KAILEE TIM Current LOS: 10 Anticipated DC Date: Planned Disposition: Home Hlth Svc w Plan Readm Primary Insurance: [employer] OUT OF STATE Discharge Planning Comments: CM met with patient at bedside after explaining CM role and obtaining verbal consent. CM discussed availability / needs of home health, REHAB and medical equipment. PATIENT STATES PLANS TO RETURN TO HIS MOMS HOUSE WHERE HE IS STAYING AND [facility]. TD SIGNED. STATES HAS ALL THE EQUIPMENT HE NEEDS. CM WILL FOLLOW AND ASSIST WITH DC PLANNING NEEDED. Head Refrigerating Engineer: Layne Henry DCPIA - Discharge Planning Initial Assessment Updated by [id number]: Layne Henry on 09/04/19 9:19 am * Is the patient Alert and Oriented? Yes * PCP [facility] * Pharmacy [facility] * Preadmission Environment Home with Family * Other Equipment WHEEL CHAIR, HOSPITAL BED, STATES HAS ALL EQUIPMENT * Community resources currently utilized Home Health * Please name any agencies selected above. [facility] * Additional services required to return to the preadmission environment? No * Can the patient safely return to the preadmission environment? Yes * Has this patient been hospitalized within the prior 30 days at any hospital? No Coverage Notice Reviewer: [id number] Bruna Henry Notice Issued Date-Time: 09/04/2019 9:20 Notice Type: Patient Choice Letter Notice Delivered To: Patient Relationship to Patient: Wrapper Off Name: Delivery Method: HAND - Hand Delivered Renetta Days: Prior Verbal Notification: Recipient Understood Notice: Yes Recipient Signature: Yes Med Rec Note Co-signed by Attending: Coverage Notice Comment: RESUME [facility] Last DP export: 09/11/19 12:29 p Patient Name: RONNIE LEMOS Page [phone] at 1630 All edits/amendments must be made on the electronic document DICTATION DATE: 09/11/191628 FORGE SHOP SUPERVISOR: GERA 09/11/191628 RPT#: [id number] DC DATE: STATUS: ADM IN [facility] [address] [place] [address] END OF REPORT
[2019-09-11 17:39] VITALS: BP 119/77
--- NOTE | 2019-09-11 18:35 | NUR ---
RESTING IN BED WITH EYES OPEN. NO C/O PAIN. NO S/S OF ACUTE DISTRESS NOTED. AWAITING TRANSFER TO [facility]. DENIES ANY NEEDS AT THIS TIME. CALL LIGHT IN REACH. WILL CONTINUE TO MONITOR.
--- NOTE | 2019-09-11 18:55 | NUR ---
FAMILY HAS BEEN AT BEDSIDE. PATIENT WITHOUT SIGNS OF DISTRESS.
[2019-09-11 20:00] VITALS: BP 108/71
[2019-09-11 20:07] LABS: AEROBE ID Final report (())
--- NOTE | 2019-09-11 22:36 | NUR ---
PT HAS A BED AT [facility]. REPORT CALLED TO LALITO GARCIA RN. FAMILY AWARE OF TRANSFER SOON EMS IS AVAILABLE AND OF NO VISITOR POLICY AT [facility].
--- NOTE | 2019-09-12 14:10 | MORECARE ---
CASE MANAGEMENT DISCHARGE SUMMARY PATIENT: RONNIE LEMOS UNIT: [id number] ADM DATE: 08/25/19 AGE: 39 : [birth year] SEX: M ROOM/BED: D.2232 AUTHOR: TAMI,DOC PHYSICIAN: REFERRING PHYSICIAN: KAILEE GÓMEZ MD DATE OF SERVICE: 09/12/19 Discharge Plan Patient Name: RONNIE LEMOS Facility: [facility]:[place] : 1980 Planned Disposition: Home Hlth Svc w Plan Readm Anticipated Discharge Date: Discharge Date: 09/11/2019 Expected LOS: Initial Reviewer: [email or web address] Initial Review Date: 09/04/2019 Generated: 09/12/19 3:09 pm Comments DCP- Discharge Planning Updated by [id number]: Erika Martinez on 09/11/19 12:[address] CALLED [facility] ABOUT THE TRANSFER AND TO LET THEM KNOW HE HAS MOVED TO A MED SURG BED. I HAD TO START THE PROCESS OVER I SPOKE WITH RAF AT [facility], TRANSFER PROCESS HAS STARTED WAITING ON ACCEPTING MD AND BED DCP- Discharge Planning Updated by [id number]: Vanessa Langley on 09/09/19 5:[address] CM called and spoke with patient's mother Lucero Ramos [phone] to find out if she would agree for CM to send out request for transfer to both [facility], [facility], and [facility] for Endocrinology services. Mother agreed that it was alright to send out request. CM called [facility] to reinitiate transfer patient has been placed on waiting list for ICU bed. CM called [facility] transfer Center and patient was also placed on waiting list for ICU transfer. CM contacted [facility] in [place] and neither have endocrinology services available. CM will continue to follow and assist as needed with discharge planning / needs. DCP- Discharge Planning Updated by [id number]: Vanessa Lagnley on 09/08/19 3:[address] LATE ENTRY 09/07/19 CM that patient's mother is requesting that patient be transferred to [facility]. (She stated that she has been telling "them" all week) CAMERON was notified by unit nurse of this request this am. CM asked if Dr. Madison was aware of request and if he agreed to transfer. Nurse stated yes that he was aware and that the power house control room operator also was aware. CM attempted to call [facility] to speak to bed control and never was able to speak with anyone. CM called [facility] physicians transfer line [phone] and spoke triage nurse Radha while CM was giving report on patient and why the request for transfer. CM was notified that patient was a rapid response and code sepsis. Patient was transferred to ICU. CM informed Radha of this. Radha stated that she would have her hospitalist call Dr. Madison. Radha stated that if patient is going to be an ICU to ICU transfer then he will be put on a waiting list d/t ICU bed availability. Radha stated that she would keep CM updated on bed availability. Radha did advise that CM and physician may want to look at other facilities for higher level of care. Dr. Madison stated that he would speak to patient's mother to see if she would agree to a different hospital. Patient's mother is trying to decide and will let Dr. Madison know. CM will continue to follow and assist as needed with discharge planning / needs. DCP- Discharge Planning Updated by [email or web address]: Layne Henry on 09/04/19 8:[address] Patient Name: RONNIE LEMOS Admission Status: ER Accout number: [id number] Admission Date: 08-25-2019 : 1980 Admission Diagnosis:HYPERCALCEMIA Attending: KAILEE TIM Current LOS: 10 Anticipated DC Date: Planned Disposition: Home Hlth Svc w Plan Readm Primary Insurance: [employer] OUT OF STATE Discharge Planning Comments: CM met with patient at bedside after explaining CM role and obtaining verbal consent. CM discussed availability / needs of home health, REHAB and medical equipment. PATIENT STATES PLANS TO RETURN TO HIS MOMS HOUSE WHERE HE IS STAYING AND [facility]. TD SIGNED. STATES HAS ALL THE EQUIPMENT HE NEEDS. CM WILL FOLLOW AND ASSIST WITH DC PLANNING NEEDED. It Operations Specialist: Layne Henry DCPIA - Discharge Planning Initial Assessment Updated by [id number]: Layne Henry on 09/04/19 9:19 am * Is the patient Alert and Oriented? Yes * PCP [facility] * Pharmacy [facility] * Preadmission Environment Home with Family * Other Equipment WHEEL CHAIR, HOSPITAL BED, STATES HAS ALL EQUIPMENT * Community resources currently utilized Home Health * Please name any agencies selected above. [facility] * Additional services required to return to the preadmission environment? No * Can the patient safely return to the preadmission environment? Yes * Has this patient been hospitalized within the prior 30 days at any hospital? No Coverage Notice Reviewer: [id number] Bruna Henry Notice Issued Date-Time: 09/04/2019 9:20 Notice Type: Patient Choice Letter Notice Delivered To: Patient Relationship to Patient: Steffen House Supervisor Name: Delivery Method: HAND - Hand Delivered Renetta Days: Prior Verbal Notification: Recipient Understood Notice: Yes Recipient Signature: Yes Med Rec Note Co-signed by Attending: Coverage Notice Comment: RESUME [facility] ARABELLA Last DP export: 09/11/19 3:30 p Patient Name: RONNIE LEMOS Page [id number] at 1410 All edits/amendments must be made on the electronic document DICTATION DATE: 09/12/19 1409 FRONT MAKER: GERA 09/12/19 1409 RPT#: [id number] DC DATE:09/11/19 STATUS: DIS IN [facility] [address] [facility] [place] [address] END OF REPORT
[2019-09-12 19:08] LABS: CORTISOL FREE - 24HR <2 ug/24 hr (5-64); CORTISOL FREE - UR <1 ug/L (Undefined)
[2019-09-13 07:16] LABS: VMA - URINE 3.5 mg/L (Undefined)
== END 2019-09-11 23:26 | disposition short-term general hospital (02) | DRG 640 ==
LOC: D.ER 18:28 → D.ICU 23:39 → D.MS 23:39 → D.ICU 09-07 10:57 → D.MS 09-10 15:07
PROVIDERS: Emergency Medicine; Family Medicine; General Practice; Internal Medicine; Internal Medicine Gastroenterology; Internal Medicine Hematology & Oncology; Internal Medicine Nephrology; ADMIT Family Medicine Adult Medicine; ATTEND Family Medicine Adult Medicine
PROC: 0DB28ZX Excision of Middle Esophagus, Via Natural or Artificial Opening Endoscopic, Diagnostic (ICD-10-PCS; principal; 2019-08-30 13:00)
PROC: 05H533Z Insertion of Infusion Device into Right Subclavian Vein, Percutaneous Approach (ICD-10-PCS; 2019-09-08)
DX: E83.52 Hypercalcemia (principal); E43 Unspecified severe protein-calorie malnutrition; E87.1 Hypo-osmolality and hyponatremia; Z68.1 Body mass index [BMI] 19.9 or less, adult; N17.9 Acute kidney failure, unspecified; R78.81 Bacteremia; D61.818 Other pancytopenia; R64 Cachexia; E86.0 Dehydration; E88.09 Other disorders of plasma-protein metabolism, not elsewhere classified; R63.0 Anorexia; E03.9 Hypothyroidism, unspecified; E83.42 Hypomagnesemia; K29.70 Gastritis, unspecified, without bleeding; R63.4 Abnormal weight loss; R41.82 Altered mental status, unspecified; R62.7 Adult failure to thrive; D50.9 Iron deficiency anemia, unspecified; E55.9 Vitamin D deficiency, unspecified